=== PATIENT | male | born 1930 | race Caucasian/White ===

== ENCOUNTER 2018-10-30 13:13 | Inpatient (IN) | payer MEDICARE, BC ==
--- NOTE | 2018-10-30 13:50 | ED Physician Chart ---
ED Chief Complaint/HPI - Patient Information Date Seen:: 10/30/18 Time Seen:: 13:40 Chief Complaint:: agitation History of Present Illness:: Patient's been agitated and combative for the last 5 weeks. He has been hitting and kicking his care provider. He's also had insomnia. Patient's had multiple episodes of pneumonia last time about 3 weeks ago at [facility]. Last night during a paroxysm of coughing patient's pulse ox went down to 79%. Allergies:: Allergies Allergy/AdvReac Type Severity Reaction Status Date / Time lisinopril AdvReac COUGH Verified 10/30/18 13:32 Vitals:: Vital Signs - 8 hr 10/30/18 13:33 Temp 98.4 F HR 74 RR 18 BP 102/42 O2 Sat % 96 Historian:: Patient, Other (care providers) Review:: Nurse's Note Reviewed ED Review of Systems - Review of Systems General/Constitutional: No fever, No chills, No weight loss, No weakness, No diaphoresis, No edema, No loss of appetite Skin: No skin lesions, No rash, No bruising Head: No headache, No light-headedness Eyes: No loss of vision, No pain, No diplopia ENT: No earache, No nasal drainage, No sore throat, No tinnitus Neck: No neck pain, No swelling, No thyromegaly, No stiffness, No mass noted Cardio Vascular: No chest pain, No palpitations, No PND, No orthopnea, No edema Pulmonary: No SOB, No cough, No sputum, No wheezing GI: No nausea, No vomiting, No diarrhea, No pain, No melena, No hematochezia, No constipation, No hematemesis G/U: No dysuria, No frequency, No hematuria Musculoskeletal: No bone or joint pain, No back pain, No muscle pain Endocrine: No polyuria, No polydipsia Psychiatric: Other (dementia) Hematopoietic: No bruising, No lymphadenopathy Allergic/Immuno: No urticaria, No angioedema Neurological: No syncope, No focal symptoms, No weakness, No paresthesia, No headache, No seizure, No dizziness, No confusion, No vertigo ED Past Medical History - Past Medical History Past Medical History: HTN, Asthma/COPD, Dementia, Other (anemia) Family History: Other (not available) Social History: Non Smoker, No Alcohol Surgical History: other (penile implant and its removal) Psychiatricy History: Dementia Medication: Reviewed Family Medical History - Family Member Brother Ethnicity: Non- Living Status: Still Living Hx Family Cancer: Yes ED Physical Exam - Physical Examination General/Constitutional: Awake, Well-developed, well-nourished, Alert, No distress, GCS 15, Non-toxic appearing, Ambulatory Head: Atraumatic Eyes: Lids, conjuctiva normal, PERRL, EOMI Skin: Nl inspection, No rash, No skin lesions, No ecchymosis, Well hydrated, No lymphadenopathy ENMT: External ears, nose nl, Lips, teeth, gums nl Neck: No nuchal rigidity Respiratory: Nl effort/Exclusion, Clear to Auscultation, No Wheeze/Rhonchi/Rales Cardio Vascular: RRR, No murmur, gallop, rubs, NL S1 S2 GI: No tenderness/rebounding/guarding, No organomegaly Extremities: Normal digits & nails ED Labs/Radiology/EKG Results - Lab Results Results: Laboratory Results WBC 8.8 Th/cmm (4.8-10.8) 10/30/18 14:10 RBC 4.60 Mil/cmm (3.80-5.80) 10/30/18 14:10 Hgb 11.7 gm/dL (12-16) L 10/30/18 14:10 Hct 36.6 % (41.0-60) L 10/30/18 14:10 MCV 79.6 fl (80-99) L 10/30/18 14:10 MCH 25.5 pg (27.0-31.0) L 10/30/18 14:10 MCHC Differential 32.1 pg (28.0-36.0) 10/30/18 14:10 RDW 27.1 % (11.5-20.0) H 10/30/18 14:10 Plt Count 328 Th/cmm (150-400) 10/30/18 14:10 MPV 7.4 fl 10/30/18 14:10 Neutrophils % 80.6 % (40.0-80.0) H 10/30/18 14:10 Lymphocytes % 7.6 % (20.0-50.0) L 10/30/18 14:10 Monocytes % 9.8 % (2.0-10.0) 10/30/18 14:10 Eosinophils % 1.3 % (0.0-5.0) 10/30/18 14:10 Basophils % 0.7 % (0.0-2.0) 10/30/18 14:10 Neutrophils (Manual) Not Reportable 10/30/18 14:10 Sodium 134 mEq/L (136-145) L 10/30/18 14:10 Potassium 3.9 mEq/L (3.5-5.1) 10/30/18 14:10 Chloride 100 mEq/L (98-107) 10/30/18 14:10 Carbon Dioxide 25.5 mEq/L (21.0-31.0) 10/30/18 14:10 Anion Gap 12.4 (7.0-16.0) 10/30/18 14:10 BUN 21 mg/dL (7-25) 10/30/18 14:10 Creatinine 1.1 mg/dL (0.7-1.3) 10/30/18 14:10 Est GFR ( Amer) TNP 10/30/18 14:10 Est GFR (Non-Af Amer) TNP 10/30/18 14:10 BUN/Creatinine Ratio 19.1 10/30/18 14:10 Glucose 101 mg/dL (70-105) 10/30/18 14:10 Calcium 9.0 mg/dL (8.6-10.3) 10/30/18 14:10 Total Bilirubin 0.4 mg/dL (0.3-1.0) 10/30/18 14:10 AST 14 U/L (13-39) 10/30/18 14:10 ALT 10 U/L (7-52) 10/30/18 14:10 Alkaline Phosphatase 79 U/L (34-104) 10/30/18 14:10 Total Protein 7.5 gm/dL (6.0-8.3) 10/30/18 14:10 Albumin 3.1 gm/dL (4.2-5.5) L 10/30/18 14:10 Globulin 4.4 gm/dL 10/30/18 14:10 Albumin/Globulin Ratio 0.7 (1.0-1.8) L 10/30/18 14:10 Triglycerides 63 mg/dL (<150) 10/30/18 14:10 Cholesterol 129 mg/dL (<200) 10/30/18 14:10 LDL Cholesterol Direct 61 mg/dL (75-193) L 10/30/18 14:10 HDL Cholesterol 49 mg/dL (23-92) 10/30/18 14:10 Salicylates < 25.0 mg/L (30.0-100.0) L 10/30/18 14:10 Acetaminophen < 10.0 ug/mL (10.0-30.0) L 10/30/18 14:10 Valproic Acid 15.7 ug/mL (50.0-100.0) L 10/30/18 14:10 Ethyl Alcohol < 10 mg/dL (0-10) 10/30/18 14:10 - Radiology Results Results: Chest x-ray showed chronic interstitial lung changes; underlying acute interstitial infiltrate cannot be completely excluded. - EKG Interpretations Rate & Rhythm: EKG showed normal sinus rhythm with a rate of 70 [place]: borderline right axis deviation Comments:: Inverted T waves in leads V1 and V2 ED Assessment - Assessment General Assessment: Patient admitted to [facility] because of his comorbidities. Chest x- ray showed possible acute interstitial infiltrate. Clinically probably patient does not have acute pneumonia but has the residual of his pneumonia 3 weeks ago. I spoke to Dr. Moi Jones and patient be admitted to telemetry with a consult to Dr. Schulz. ED Septic Shock - . Is Septic Shock (SBP<90, OR Lactate>4 mmol\L) present?: No - <6hrs of presentation: Vital Signs: Vital Signs - 8 hr 10/30/18 13:33 Temp 98.4 F HR 74 RR 18 BP 102/42 O2 Sat % 96 ED Reassessment (Disposition) - Reassessment Reassessment:: At about 1500 patient getting agitated and will be given Ativan 2 mg intramuscularly. Reassessment Condition:: Unchanged - Diagnosis Diagnosis:: Dementia with agitation; possible pneumonia; recent episode of hypoxemia; history of COPD - Patient Disposition Admitted to:: Telemetry Spoke to:: Moi Jones Condition at Disposition:: Stable, Unchanged
--- NOTE | 2018-10-30 14:05 | Diagnostic Imaging Report ---
CHEST X-RAY: AP view INDICATION: Pneumonia COMPARISON: None FINDINGS: Chronic interstitial lung changes are seen with linear densities throughout the lungs and biapical pleural thickening. Areas of scarring of the right mid to right upper lung zone is noted. Heart size normal. No focal consolidation or effusions. Degenerative changes of the spine are noted. IMPRESSION: Chronic interstitial lung changes with likely areas of scarring. Underlying acute interstitial infiltrate cannot be completely excluded. Clinical correlation is needed. There is probable COPD. Biapical pleural thickening which may be due to infectious or inflammatory process.
[2018-10-30 14:32] LABS: % BASOPHILS 0.7 % (0.0-2.0); % EOSINOPHILS 1.3 % (0.0-5.0); % LYMPHOCYTES 7.6 % (20.0-50.0); % MONOCYTES 9.8 % (2.0-10.0); % NEUTROPHILS 80.6 % (40.0-80.0); BASOPHILE ABSOLUTE 0.1 Th/cumm (0-0.2); EOSINOPHILE ABSOLUTE 0.1 Th/cmm (0.1-0.4); HEMATOCRIT 36.6 % (41.0-60); HEMOGLOBIN 11.7 gm/dL (12-16); LYMPHOCYTE ABSOLUTE 0.7 Th/cmm (1.5-3.0); MEAN CELL VOLUME 79.6 fl (80-99); MEAN CORPUSCULAR HEMOGLOBIN 25.5 pg (27.0-31.0); MEAN CORPUSCULAR HGB CONC 32.1 pg (28.0-36.0); MONOCYTE ABSOLUTE 0.9 Th/cmm (0.3-1.0); PLATELET COUNT 328 Th/cmm (150-400); RED CELL DISTRIBUTION WIDTH 27.1 % (11.5-20.0); WHITE BLOOD COUNT 8.8 Th/cmm (4.8-10.8)
[2018-10-30 14:40] LABS: ALB/GLOB RATIO 0.7 (1.0-1.8); ALBUMIN 3.1 gm/dL (4.2-5.5); ALKALINE PHOSPHATASE 79 U/L (34-104); ANION GAP 12.4 (7.0-16.0); BILIRUBIN,TOTAL 0.4 mg/dL (0.3-1.0); BUN - UREA NITROGEN 21 mg/dL (7-25); CARBON DIOXIDE 25.5 mEq/L (21.0-31.0); CHLORIDE 100 mEq/L (98-107); CHOLESTEROL 129 mg/dL (<200); CREATININE - SERUM 1.1 mg/dL (0.7-1.3); GLUCOSE 101 mg/dL (70-105); HDL -HIGH DENSITY LIPOPROTEIN 49 mg/dL (23-92); POTASSIUM SERUM 3.9 mEq/L (3.5-5.1); SGOT 14 U/L (13-39); SGPT/ALT 10 U/L (7-52); SODIUM SERUM 134 mEq/L (136-145); TOTAL PROTEIN,SERUM 7.5 gm/dL (6.0-8.3); TRIGLYCERIDES 63 mg/dL (<150)
[2018-10-30 14:52] LABS: ACETAMINOPHEN < 10.0 ug/mL (10.0-30.0)
[2018-10-30] MEDS ORDERED: Maalox 30 mL Cup PO PRN (17:43)
[2018-10-30] MEDS ORDERED: Magnesium Hydroxide (MOM) 30 mL UDC PO PRN (17:43)
[2018-10-30 18:06] VITALS: BP 127/63
[2018-10-30] MEDS ORDERED: Atorvastatin Calcium 10 MG TAB PO SCH ×2 (21:00)
--- NOTE | 2018-10-31 06:25 | History and Physical ---
History of Present Illness - HPI Chief Complaint: Psychosis HPI: 88 y/o male who presents to [facility] with history of increased agitation and combativeness noted by caregiver for the past 5 weeks. Patient has h/o HTN, Asthma/COPD, Dementia, Hyperlipidemia, GERD, BPH and Insomnia. Patient was noted to have persistent cough with pulse ox dropping to 79% by patient caregiver. Patient was subsequently brought to the hospital for further evaluation and treatment. While in the ER patient was noted had routine labwork done in the ER wbc 8.8 H/H 11.7/36.6 plat 328K Na 134 K 3.9 Bun/Cr 21/1.1 glu 101 Patient had chest xray done in the ER which revealed chronic COPD. Patient was subsequently admitted to [facility] for further evaluation and treatment. Vital Signs: Last Vital Signs Temp 97.6 F 10/30/18 20:38 Pulse 90 10/30/18 20:38 Resp 18 10/30/18 20:38 BP 110/62 10/30/18 20:38 Pulse Ox 96 10/30/18 20:38 Past Medical History Cardiovascular: Report: HTN, Hyperlipidemia Pulmonary: Report: COPD MUSEUM DOCENT: Report: Dementia GI: Report: GERD Psych: Report: Psychosis Musculoskeletal: Report: No Pertinent Hx Rheumatologic: Report: No pertinent Hx Infectious Disease: Report: No Pertinent Hx Renal/: Report: No Pertinent Hx Endocrine: Report: No Pertinent Hx Dermatology: Report: No Pertinent Hx - Past Surgical History Past Surgical History: No pertinent Hx Family Medical History - Family Member Brother History Unknown: Yes Ethnicity: Non- Living Status: Still Living Hx Family Cancer: Yes Social History Smoke: No Alcohol: None Drugs: None Lives: With Family - Medications Home Medications: Home Medication Medication Instructions Recorded Type Atorvastatin Calcium [Lipitor] 40 mg PO DAILY 10/30/[address] [Depakote DR] 250 mg PO DAILY 10/30/18 History Donepezil HCl [Aricept] 10 mg PO DAILY 10/30/18 History Losartan Potassium [Cozaar] 25 mg PO DAILY 10/30/18 History Memantine HCl 10 mg PO BID 10/30/18 History Omeprazole 20 mg PO BID 10/30/18 History Sertraline [Zoloft] 25 mg PO DAILY 10/30/18 History Tamsulosin HCl [Flomax] 0.4 mg PO HS 10/30/18 History Trazodone HCl 75 mg PO HS 10/30/18 History - Allergies Allergies/Adverse Reactions: Allergies Allergy/AdvReac Type Severity Reaction Status Date / Time lisinopril AdvReac COUGH Verified 10/30/18 13:32 Review of Systems - Review of Systems Constitutional: Report: No Significant Eyes: Report: No Significant ENT: Report: No Significant Respiratory: Report: No Significant Cardiovascular: Report: No Significant Gastrointestinal: Report: No Significant Genitourinary: Report: No Significant Musculoskeletal: Report: No Significant Skin: Report: No Significant Neurological: Report: No Significant Physical Exam - Physical Exam HEENT: Report: Ears Nose Throat within normal limits, Pharnyx within normal limits Neck: Report: Within normal limits Cardiovascular Systems: Report: +s1/s2 noted, Regular, Rate and Rhythm Respiratory: Report: Breath Sounds are within normal limits Abdomen: Report: Non-tender to palpation Back: Report: Inspection of back is within normal limits. Extremities: Report: Non-tender to palpation. Skin: Report: Color of skin is within normal limits Neuro/Psych: Report: Mood affect is within normal limits - Lab Results All Lab Results last 24 hours: Laboratory Results - last 24 hr 10/30/18 10/30/18 10/30/18 14:10 14:10 14:10 WBC 8.8 RBC 4.60 Hgb 11.7 L Hct 36.6 L MCV 79.6 L MCH 25.5 L MCHC Differential 32.1 RDW 27.1 H Plt Count 328 MPV 7.4 Neutrophils % 80.6 H Lymphocytes % 7.6 L Monocytes % 9.8 Eosinophils % 1.3 Basophils % 0.7 Neutrophils (Manual) Not Reportable Sodium 134 L Potassium 3.9 Chloride 100 Carbon Dioxide 25.5 Anion Gap 12.4 BUN 21 Creatinine 1.1 Est GFR ( Amer) TNP Est GFR (Non-Af Amer) TNP BUN/Creatinine Ratio 19.1 Glucose 101 Calcium 9.0 Total Bilirubin 0.4 AST 14 ALT 10 Alkaline Phosphatase 79 Total Protein 7.5 Albumin 3.1 L Globulin 4.4 Albumin/Globulin Ratio 0.7 L Triglycerides 63 Cholesterol 129 LDL Cholesterol Direct 61 L HDL Cholesterol 49 TSH 7.46 H Salicylates < 25.0 L Acetaminophen < 10.0 L Valproic Acid Ethyl Alcohol < 10 10/30/18 14:10 WBC RBC Hgb Hct MCV MCH MCHC Differential RDW Plt Count MPV Neutrophils % Lymphocytes % Monocytes % Eosinophils % Basophils % Neutrophils (Manual) Sodium Potassium Chloride Carbon Dioxide Anion Gap BUN Creatinine Est GFR ( Amer) Est GFR (Non-Af Amer) BUN/Creatinine Ratio Glucose Calcium Total Bilirubin AST ALT Alkaline Phosphatase Total Protein Albumin Globulin Albumin/Globulin Ratio Triglycerides Cholesterol LDL Cholesterol Direct HDL Cholesterol TSH Salicylates Acetaminophen Valproic Acid 15.7 L Ethyl Alcohol - Assessment Assessment: Psychosis HTN Asthma/COPD Dementia Hyperlipidemia GERD BPH Insomnia hypothyroidism - [facility] add levothyroxine 50mcg
[2018-10-31] MEDS ORDERED: Albuterol Nebulizer 2.5mg/3mL HHN PRN (06:28)
[2018-10-31] MEDS: Levothyroxine 0.05 Mg Tab PO SCH (06:45)
[2018-10-31] MEDS: Pantoprazole 40 mg EC Tab PO SCH (06:45)
[2018-10-31] MEDS ORDERED: Non-Formulary Item 1 EA (Omeprazole [Omeprazole] 20 MG) PO SCH (09:00)
[2018-10-31] MEDS ORDERED: Non-Formulary Item 1 EA (Atorvastatin Calcium [Lipitor] 40 MG) PO SCH (09:00)
[2018-10-31] MEDS: Multivitamin Tab PO SCH (09:50)
--- NOTE | 2018-10-31 19:36 | Psychiatric Evaluation ---
DATE OF SERVICE: 10/30/2018 CHIEF COMPLAINT: Extreme agitation and aggressive behavior. HISTORY OF PRESENT ILLNESS: The patient is admitted to the [facility], also to the Emergency Room because of increased agitation and combative behavior for the last 5 weeks. The patient has been hitting and kicking his care provider. He also has been having extreme irritable and extreme agitation. The patient also has not been able to follow any directions. The patient also has a history of pneumonia and he was in treatment in [facility] 3 weeks ago. He is still struggling with pneumonia. The patient also is still easily agitated and easily irritable and aggressive and unable to follow any directions. The patient also is still coughing. PAST PSYCHIATRIC HISTORY: The patient has history of dementia. Otherwise, no known psychiatric problems. PAST MEDICAL HISTORY: The patient has hypertension as well as bronchial asthma. The patient also has history of anemia and COPD. The patient also was in treatment in [facility] 5 weeks ago for pneumonia. ALLERGIES: No known allergies. MENTAL STATUS EXAMINATION: The patient appears older than his stated age. Anxious. Irritable mood. Agitated. Difficulty following directions. Thought processes are circumstantial with poverty of speech. The patient did not answer question regarding hallucinations or delusions or regarding suicide or homicide because of his agitation. The patient is alert, but seems to be disoriented to time, place, person, and situation. Impaired recent and immediate memories. Intact remote memory. ASSESSMENT: PRIMARY DIAGNOSIS: Unspecified psychosis. SECONDARY DIAGNOSIS: Dementia, moderate to severe, with psychotic features and behavioral disturbances. MEDICAL DIAGNOSES: 1. Hypertension. 2. Chronic obstructive pulmonary disease. 3. Bronchial asthma. 4. History of pneumonia. 5. Anemia. TREATMENT PLAN: We will monitor the patient's behavior and condition closely. We will start individual as well as milieu psychotherapy. We will also continue the patient on Depakote as well as Aricept. Also, we will consider changing Zoloft, but for the time being we will continue Zoloft and continue trazodone until further evaluation. ESTIMATED LENGTH OF STAY: 5-7 days. THE PATIENT'S STRENGTHS AND WEAKNESSES: The patient's strength is not clear at this time. Weakness is significant poor impulse control and irritability and agitation. AFTER DISCHARGE PLAN: Outpatient treatment and followup will continue as an outpatient and the patient might need placement in the detention. CRITERIA FOR DISCHARGE: The patient will have better impulse control and not as aggressive and will stabilize psychotropic medications. JOB# [id number]
--- NOTE | 2018-11-01 06:03 | General Progress Note ---
Subjective - Review of Systems Service Date: 11/01/18 Subjective: Awake, Alert, Afebrile VS T97.9 P74 BP 143/69 R18 Objective - Results Result Diagrams: 10/30/18 14:10 10/30/18 14:10 Recent Labs: Laboratory Last Values WBC 8.8 Th/cmm (4.8-10.8) 10/30/18 14:10 RBC 4.60 Mil/cmm (3.80-5.80) 10/30/18 14:10 Hgb 11.7 gm/dL (12-16) L 10/30/18 14:10 Hct 36.6 % (41.0-60) L 10/30/18 14:10 MCV 79.6 fl (80-99) L 10/30/18 14:10 MCH 25.5 pg (27.0-31.0) L 10/30/18 14:10 MCHC Differential 32.1 pg (28.0-36.0) 10/30/18 14:10 RDW 27.1 % (11.5-20.0) H 10/30/18 14:10 Plt Count 328 Th/cmm (150-400) 10/30/18 14:10 MPV 7.4 fl 10/30/18 14:10 Neutrophils % 80.6 % (40.0-80.0) H 10/30/18 14:10 Lymphocytes % 7.6 % (20.0-50.0) L 10/30/18 14:10 Monocytes % 9.8 % (2.0-10.0) 10/30/18 14:10 Eosinophils % 1.3 % (0.0-5.0) 10/30/18 14:10 Basophils % 0.7 % (0.0-2.0) 10/30/18 14:10 Neutrophils (Manual) Not Reportable 10/30/18 14:10 Sodium 134 mEq/L (136-145) L 10/30/18 14:10 Potassium 3.9 mEq/L (3.5-5.1) 10/30/18 14:10 Chloride 100 mEq/L (98-107) 10/30/18 14:10 Carbon Dioxide 25.5 mEq/L (21.0-31.0) 10/30/18 14:10 Anion Gap 12.4 (7.0-16.0) 10/30/18 14:10 BUN 21 mg/dL (7-25) 10/30/18 14:10 Creatinine 1.1 mg/dL (0.7-1.3) 10/30/18 14:10 Est GFR ( Amer) TNP 10/30/18 14:10 Est GFR (Non-Af Amer) TNP 10/30/18 14:10 BUN/Creatinine Ratio 19.1 10/30/18 14:10 Glucose 101 mg/dL (70-105) 10/30/18 14:10 Calcium 9.0 mg/dL (8.6-10.3) 10/30/18 14:10 Total Bilirubin 0.4 mg/dL (0.3-1.0) 10/30/18 14:10 AST 14 U/L (13-39) 10/30/18 14:10 ALT 10 U/L (7-52) 10/30/18 14:10 Alkaline Phosphatase 79 U/L (34-104) 10/30/18 14:10 Total Protein 7.5 gm/dL (6.0-8.3) 10/30/18 14:10 Albumin 3.1 gm/dL (4.2-5.5) L 10/30/18 14:10 Globulin 4.4 gm/dL 10/30/18 14:10 Albumin/Globulin Ratio 0.7 (1.0-1.8) L 10/30/18 14:10 Triglycerides 63 mg/dL (<150) 10/30/18 14:10 Cholesterol 129 mg/dL (<200) 10/30/18 14:10 LDL Cholesterol Direct 61 mg/dL (75-193) L 10/30/18 14:10 HDL Cholesterol 49 mg/dL (23-92) 10/30/18 14:10 TSH 7.46 uIU/ml (0.34-5.60) H 10/30/18 14:10 Salicylates < 25.0 mg/L (30.0-100.0) L 10/30/18 14:10 Acetaminophen < 10.0 ug/mL (10.0-30.0) L 10/30/18 14:10 Valproic Acid 15.7 ug/mL (50.0-100.0) L 10/30/18 14:10 Ethyl Alcohol < 10 mg/dL (0-10) 10/30/18 14:10 RPR NONREACTIVE (NONREACTIVE) 10/30/18 14:10 - Physical Exam Vitals and I&O: Vital Signs Temp 97.9 F 10/31/18 20:00 Pulse 74 10/31/18 20:00 Resp 18 10/31/18 20:00 BP 143/69 10/31/18 20:00 Pulse Ox 95 10/31/18 20:00 Intake & Output 10/31/18 10/31/18 11/01/18 06:59 18:59 06:59 Intake Total 240 460 Output Total 1 Balance 239 460 Intake: Oral 240 460 Output: Urine/Stool Mix 1 Other: # Voids 2 3 # Bowel Movements 0 0 Active Medications: Current Medications Acetaminophen (Tylenol) 650 mg PO Q4HR PRN PRN Reason: Mild Pain / Temp above 100 Stop: 12/29/18 17:42 Al Hydrox/Mg Hydrox/Simethicone (Maalox) 30 ml PO Q4HR PRN PRN Reason: GI DISTRESS Stop: 12/29/18 17:42 Albuterol Sulfate (Albuterol 2.5mg/3ml Neb Ud) 2.5 mg HHN Q4HRT PRN PRN Reason: Shortness of Breath Stop: 12/30/18 06:27 Atorvastatin Calcium (Lipitor) 40 mg PO HS [facility]; Protocol Stop: 12/29/18 20:59 Last Admin: 10/31/18 20:53 Dose: 40 mg Divalproex Sodium (Depakote Dr) 250 mg PO DAILY [facility]; Protocol Stop: 12/30/18 08:59 Last Admin: 10/31/18 09:50 Dose: 250 mg Donepezil HCl (Aricept) 10 mg PO DAILY [facility] Stop: 12/30/18 08:59 Last Admin: 10/31/18 09:50 Dose: 10 mg Levothyroxine Sodium (Synthroid) 0.05 mg PO QDAC [facility] Stop: 12/30/18 07:29 Last Admin: 10/31/18 06:45 Dose: 0.05 mg Losartan Potassium (Cozaar) 25 mg PO DAILY [facility] Stop: 12/30/18 08:59 Last Admin: 10/31/18 09:50 Dose: 25 mg Magnesium Hydroxide (Milk Of Magnesia) 30 ml PO HS PRN PRN Reason: Constipation Memantine (Namenda) 10 mg PO BID [facility] Stop: 12/30/18 08:59 Last Admin: 10/31/18 17:35 Dose: 10 mg Multivitamins/Vitamin C (Theragran) 1 tab PO DAILY [facility] Stop: 12/30/18 08:59 Last Admin: 10/31/18 09:50 Dose: 1 tab Pantoprazole Sodium (Protonix) 40 mg PO QDAC [facility] Stop: 12/30/18 07:29 Last Admin: 10/31/18 06:45 Dose: 40 mg Sertraline HCl (Zoloft) 25 mg PO DAILY [facility]; Protocol Stop: 12/30/18 08:59 Last Admin: 10/31/18 09:49 Dose: 25 mg Tamsulosin HCl (Flomax) 0.4 mg PO HS [facility] Stop: 12/29/18 20:59 Last Admin: 10/31/18 20:53 Dose: 0.4 mg Trazodone HCl (Desyrel) 75 mg PO HS [facility]; Protocol Stop: 12/29/18 20:59 Last Admin: 10/31/18 20:53 Dose: 75 mg Zolpidem Tartrate (Ambien) 5 mg PO HS PRN PRN Reason: Insomnia Stop: 12/29/18 17:42 General: Alert, No acute distress HEENT: Atraumatic, PERRLA, EOMI Neck: Supple Cardiovascular: Regular rate, Normal S1, Normal S2 Lungs: Clear to auscultation Abdomen: Bowel sounds, Soft Extremities: no Clubbing, no Cyanosis, no Edema Neurological: Normal gait Assessment/Plan - Assessment Assessment: Psychosis HTN Asthma/COPD Dementia Hyperlipidemia GERD BPH Insomnia hypothyroidism - Plan Plan: admit to [facility] add Albuterol HHN add levothyroxine 50mcg
--- NOTE | 2018-11-01 06:33 | Progress Notes ---
DATE: 10/31/2018 SUBJECTIVE: Chart was reviewed and the patient interviewed. Also discussed the patient's condition with the staff and reviewed records and labs. The patient is still agitated and restless. The patient also still needs close monitoring and has difficulty following directions. He also still seems to be suspicious and paranoid and seems to be slightly confused. The patient also has history of combative behavior. Otherwise, the patient is compliant with taking his medications with no side effects. ASSESSMENT: The patient is still agitated and aggressive. TREATMENT PLAN: Continue current medications including Namenda 10 mg twice a day and Aricept 10 mg every day as well as trazodone 75 mg at bedtime and Depakote and Zoloft. Also, continue working on his poor impulse control and on his agitation and irritability. Also, working on his interpersonal relationships. JOB# [id number]
[2018-11-01] MEDS: Levothyroxine 0.05 Mg Tab PO SCH (06:39)
[2018-11-01] MEDS: Pantoprazole 40 mg EC Tab PO SCH (06:39)
[2018-11-01] MEDS: Multivitamin Tab PO SCH (09:50)
[2018-11-01] MEDS ORDERED: Haloperidol Lactate 5 mg/mL 1mL Vial IM STA (12:28)
[2018-11-01] MEDS: Albuterol/Ipratropium Neb 3 ML AERS HHN SCH ×2 (18:54→22:26)
--- NOTE | 2018-11-02 00:01 | Progress Notes ---
DATE: 11/01/2018 SUBJECTIVE: Case was discussed with staff of the patient, reviewed records. This is an 88-year-old male who was admitted on 10/30/2018, because of his agitation, combative behavior for the past few weeks has been hitting and kicking his care provider, also has been extremely irritable, extremely agitated, unable to follow direction with a history of pneumonia. He was in treatment at [facility] [place] 3 weeks prior. He is still struggling with pneumonia. The patient is easily agitated, easily irritable and aggressive with history of dementia. The patient continues to be easily agitated, loud on the unit, and demanding. He has tried to grab at me when I was trying to talk to him. Continues to unable to carry a reasonable conversation, suspicious, paranoid, confused, unable to make safe plan for self-care. He is on Namenda 10 mg twice a day, Aricept 10 mg at bedtime and Depakote 250 mg twice a day, and Zoloft 25 mg daily with no side effects, no sedation, no nausea. I will continue the patient in group therapy, milieu therapy, and adjust the medication as needed. JOB# [id number]
[2018-11-02] MEDS: Albuterol/Ipratropium Neb 3 ML AERS HHN SCH ×6 (02:32→22:31)
--- NOTE | 2018-11-02 06:17 | General Progress Note ---
Subjective - Review of Systems Service Date: 11/02/18 Subjective: Awake, Alert, Afebrile VS T97.7 P86 BP 137/74 R18 Objective - Results Result Diagrams: 10/30/18 14:10 10/30/18 14:10 Recent Labs: Laboratory Last Values WBC 8.8 Th/cmm (4.8-10.8) 10/30/18 14:10 RBC 4.60 Mil/cmm (3.80-5.80) 10/30/18 14:10 Hgb 11.7 gm/dL (12-16) L 10/30/18 14:10 Hct 36.6 % (41.0-60) L 10/30/18 14:10 MCV 79.6 fl (80-99) L 10/30/18 14:10 MCH 25.5 pg (27.0-31.0) L 10/30/18 14:10 MCHC Differential 32.1 pg (28.0-36.0) 10/30/18 14:10 RDW 27.1 % (11.5-20.0) H 10/30/18 14:10 Plt Count 328 Th/cmm (150-400) 10/30/18 14:10 MPV 7.4 fl 10/30/18 14:10 Neutrophils % 80.6 % (40.0-80.0) H 10/30/18 14:10 Lymphocytes % 7.6 % (20.0-50.0) L 10/30/18 14:10 Monocytes % 9.8 % (2.0-10.0) 10/30/18 14:10 Eosinophils % 1.3 % (0.0-5.0) 10/30/18 14:10 Basophils % 0.7 % (0.0-2.0) 10/30/18 14:10 Neutrophils (Manual) Not Reportable 10/30/18 14:10 Sodium 134 mEq/L (136-145) L 10/30/18 14:10 Potassium 3.9 mEq/L (3.5-5.1) 10/30/18 14:10 Chloride 100 mEq/L (98-107) 10/30/18 14:10 Carbon Dioxide 25.5 mEq/L (21.0-31.0) 10/30/18 14:10 Anion Gap 12.4 (7.0-16.0) 10/30/18 14:10 BUN 21 mg/dL (7-25) 10/30/18 14:10 Creatinine 1.1 mg/dL (0.7-1.3) 10/30/18 14:10 Est GFR ( Amer) TNP 10/30/18 14:10 Est GFR (Non-Af Amer) TNP 10/30/18 14:10 BUN/Creatinine Ratio 19.1 10/30/18 14:10 Glucose 101 mg/dL (70-105) 10/30/18 14:10 Calcium 9.0 mg/dL (8.6-10.3) 10/30/18 14:10 Total Bilirubin 0.4 mg/dL (0.3-1.0) 10/30/18 14:10 AST 14 U/L (13-39) 10/30/18 14:10 ALT 10 U/L (7-52) 10/30/18 14:10 Alkaline Phosphatase 79 U/L (34-104) 10/30/18 14:10 Total Protein 7.5 gm/dL (6.0-8.3) 10/30/18 14:10 Albumin 3.1 gm/dL (4.2-5.5) L 10/30/18 14:10 Globulin 4.4 gm/dL 10/30/18 14:10 Albumin/Globulin Ratio 0.7 (1.0-1.8) L 10/30/18 14:10 Triglycerides 63 mg/dL (<150) 10/30/18 14:10 Cholesterol 129 mg/dL (<200) 10/30/18 14:10 LDL Cholesterol Direct 61 mg/dL (75-193) L 10/30/18 14:10 HDL Cholesterol 49 mg/dL (23-92) 10/30/18 14:10 TSH 7.46 uIU/ml (0.34-5.60) H 10/30/18 14:10 Salicylates < 25.0 mg/L (30.0-100.0) L 10/30/18 14:10 Acetaminophen < 10.0 ug/mL (10.0-30.0) L 10/30/18 14:10 Valproic Acid 15.7 ug/mL (50.0-100.0) L 10/30/18 14:10 Ethyl Alcohol < 10 mg/dL (0-10) 10/30/18 14:10 RPR NONREACTIVE (NONREACTIVE) 10/30/18 14:10 - Physical Exam Vitals and I&O: Vital Signs Temp 97.7 F 11/01/18 20:00 Pulse 86 11/02/18 02:37 Resp 20 11/02/18 02:37 BP 137/74 11/01/18 20:00 Pulse Ox 95 11/02/18 02:37 Intake & Output 11/01/18 11/01/18 11/02/18 06:59 18:59 06:59 Intake Total 480 650 Balance 480 650 Intake: Oral 480 650 Other: # Voids 2 3 Active Medications: Current Medications Acetaminophen (Tylenol) 650 mg PO Q4HR PRN PRN Reason: Mild Pain / Temp above 100 Stop: 12/29/18 17:42 Al Hydrox/Mg Hydrox/Simethicone (Maalox) 30 ml PO Q4HR PRN PRN Reason: GI DISTRESS Stop: 12/29/18 17:42 Albuterol/Ipratropium (Duoneb Neb) 3 ml HHN Q4HRT [facility] Stop: 12/31/18 18:59 Last Admin: 11/02/18 02:32 Dose: 3 ml Atorvastatin Calcium (Lipitor) 40 mg PO HS [facility]; Protocol Stop: 12/29/18 20:59 Last Admin: 11/01/18 20:18 Dose: 40 mg Divalproex Sodium (Depakote Dr) 250 mg PO DAILY [facility]; Protocol Stop: 12/30/18 08:59 Last Admin: 11/01/18 09:50 Dose: 250 mg Donepezil HCl (Aricept) 10 mg PO DAILY [facility] Stop: 12/30/18 08:59 Last Admin: 11/01/18 09:50 Dose: 10 mg Levothyroxine Sodium (Synthroid) 0.05 mg PO QDAC [facility] Stop: 12/30/18 07:29 Last Admin: 11/01/18 06:39 Dose: 0.05 mg Lorazepam (Ativan) 0.5 mg PO Q4HR PRN; Protocol PRN Reason: anxiety Stop: 12/31/18 12:14 Last Admin: 11/01/18 20:19 Dose: 0.5 mg Losartan Potassium (Cozaar) 25 mg PO DAILY [facility] Stop: 12/30/18 08:59 Last Admin: 11/01/18 09:51 Dose: 25 mg Magnesium Hydroxide (Milk Of Magnesia) 30 ml PO HS PRN PRN Reason: Constipation Memantine (Namenda) 10 mg PO BID [facility] Stop: 12/30/18 08:59 Last Admin: 11/01/18 17:17 Dose: 10 mg Multivitamins/Vitamin C (Theragran) 1 tab PO DAILY [facility] Stop: 12/30/18 08:59 Last Admin: 11/01/18 09:50 Dose: 1 tab Pantoprazole Sodium (Protonix) 40 mg PO QDAC [facility] Stop: 12/30/18 07:29 Last Admin: 11/01/18 06:39 Dose: 40 mg Sertraline HCl (Zoloft) 25 mg PO DAILY [facility]; Protocol Stop: 12/30/18 08:59 Last Admin: 11/01/18 09:51 Dose: 25 mg Tamsulosin HCl (Flomax) 0.4 mg PO HS [facility] Stop: 12/29/18 20:59 Last Admin: 11/01/18 20:18 Dose: 0.4 mg Trazodone HCl (Desyrel) 75 mg PO HS [facility]; Protocol Stop: 12/29/18 20:59 Last Admin: 11/01/18 20:18 Dose: 75 mg Zolpidem Tartrate (Ambien) 5 mg PO HS PRN PRN Reason: Insomnia Stop: 12/29/18 17:42 Last Admin: 11/01/18 23:08 Dose: 5 mg General: Alert, No acute distress HEENT: Atraumatic, PERRLA, EOMI Neck: Supple Cardiovascular: Regular rate, Normal S1, Normal S2 Lungs: Clear to auscultation Abdomen: Bowel sounds, Soft Extremities: no Clubbing, no Cyanosis, no Edema Neurological: Normal gait Assessment/Plan - Assessment Assessment: Psychosis HTN Asthma/COPD Dementia Hyperlipidemia GERD BPH Insomnia hypothyroidism - Plan Plan: admit to [facility] add Albuterol HHN add levothyroxine 50mcg
[2018-11-02] MEDS: Levothyroxine 0.05 Mg Tab PO SCH (06:29)
[2018-11-02] MEDS: Pantoprazole 40 mg EC Tab PO SCH (06:29)
[2018-11-02] MEDS: Multivitamin Tab PO SCH (09:56)
[2018-11-03] MEDS: Albuterol/Ipratropium Neb 3 ML AERS HHN SCH ×6 (02:56→23:19)
--- NOTE | 2018-11-03 03:30 | Progress Notes ---
DATE: 11/02/2018 FOLLOWUP PROGRESS NOTE Covering for Dr. Schulz. Case was discussed with staff of the patient, reviewed records. The patient yesterday had to end up having to take Haldol 2 mg, Ativan 0.5 mg and Benadryl 25 mg and today he is calmer. He is not acting out and loud and banging on the table as he was yesterday. He was nonstop for almost 1-1/2 hour 2-3 hours yesterday, being very agitated today. He is calm, easier to redirect, unable, however, to carry on conversation or make safe plan for self-care, unpredictable, impulsive. No side effects with the medication today. No sedation, no nausea and no extrapyramidal symptoms. I will continue to work with the patient in group therapy, milieu therapy, adjust the medication as needed. JOB# [id number]
[2018-11-03] MEDS: Levothyroxine 0.05 Mg Tab PO SCH (06:47)
[2018-11-03] MEDS: Pantoprazole 40 mg EC Tab PO SCH (06:48)
--- NOTE | 2018-11-03 08:20 | General Progress Note ---
Subjective - Review of Systems Service Date: 11/03/18 Subjective: Awake, Alert, Afebrile VS T97.7 P69 BP 118/73 R19 Objective - Results Result Diagrams: 10/30/18 14:10 10/30/18 14:10 Recent Labs: Laboratory Last Values WBC 8.8 Th/cmm (4.8-10.8) 10/30/18 14:10 RBC 4.60 Mil/cmm (3.80-5.80) 10/30/18 14:10 Hgb 11.7 gm/dL (12-16) L 10/30/18 14:10 Hct 36.6 % (41.0-60) L 10/30/18 14:10 MCV 79.6 fl (80-99) L 10/30/18 14:10 MCH 25.5 pg (27.0-31.0) L 10/30/18 14:10 MCHC Differential 32.1 pg (28.0-36.0) 10/30/18 14:10 RDW 27.1 % (11.5-20.0) H 10/30/18 14:10 Plt Count 328 Th/cmm (150-400) 10/30/18 14:10 MPV 7.4 fl 10/30/18 14:10 Neutrophils % 80.6 % (40.0-80.0) H 10/30/18 14:10 Lymphocytes % 7.6 % (20.0-50.0) L 10/30/18 14:10 Monocytes % 9.8 % (2.0-10.0) 10/30/18 14:10 Eosinophils % 1.3 % (0.0-5.0) 10/30/18 14:10 Basophils % 0.7 % (0.0-2.0) 10/30/18 14:10 Neutrophils (Manual) Not Reportable 10/30/18 14:10 Sodium 134 mEq/L (136-145) L 10/30/18 14:10 Potassium 3.9 mEq/L (3.5-5.1) 10/30/18 14:10 Chloride 100 mEq/L (98-107) 10/30/18 14:10 Carbon Dioxide 25.5 mEq/L (21.0-31.0) 10/30/18 14:10 Anion Gap 12.4 (7.0-16.0) 10/30/18 14:10 BUN 21 mg/dL (7-25) 10/30/18 14:10 Creatinine 1.1 mg/dL (0.7-1.3) 10/30/18 14:10 Est GFR ( Amer) TNP 10/30/18 14:10 Est GFR (Non-Af Amer) TNP 10/30/18 14:10 BUN/Creatinine Ratio 19.1 10/30/18 14:10 Glucose 101 mg/dL (70-105) 10/30/18 14:10 Calcium 9.0 mg/dL (8.6-10.3) 10/30/18 14:10 Total Bilirubin 0.4 mg/dL (0.3-1.0) 10/30/18 14:10 AST 14 U/L (13-39) 10/30/18 14:10 ALT 10 U/L (7-52) 10/30/18 14:10 Alkaline Phosphatase 79 U/L (34-104) 10/30/18 14:10 Total Protein 7.5 gm/dL (6.0-8.3) 10/30/18 14:10 Albumin 3.1 gm/dL (4.2-5.5) L 10/30/18 14:10 Globulin 4.4 gm/dL 10/30/18 14:10 Albumin/Globulin Ratio 0.7 (1.0-1.8) L 10/30/18 14:10 Triglycerides 63 mg/dL (<150) 10/30/18 14:10 Cholesterol 129 mg/dL (<200) 10/30/18 14:10 LDL Cholesterol Direct 61 mg/dL (75-193) L 10/30/18 14:10 HDL Cholesterol 49 mg/dL (23-92) 10/30/18 14:10 TSH 7.46 uIU/ml (0.34-5.60) H 10/30/18 14:10 Salicylates < 25.0 mg/L (30.0-100.0) L 10/30/18 14:10 Acetaminophen < 10.0 ug/mL (10.0-30.0) L 10/30/18 14:10 Valproic Acid 15.7 ug/mL (50.0-100.0) L 10/30/18 14:10 Ethyl Alcohol < 10 mg/dL (0-10) 10/30/18 14:10 RPR NONREACTIVE (NONREACTIVE) 10/30/18 14:10 - Physical Exam Vitals and I&O: Vital Signs Temp 97.7 F 11/03/18 06:36 Pulse 84 11/03/18 07:18 Resp 19 11/03/18 07:18 BP 118/73 11/03/18 06:36 Pulse Ox 90 11/03/18 07:18 Intake & Output 11/02/18 11/03/18 11/03/18 18:59 06:59 18:59 Other: # Voids 2 3 # Bowel Movements 1 Active Medications: Current Medications Acetaminophen (Tylenol) 650 mg PO Q4HR PRN PRN Reason: Mild Pain / Temp above 100 Stop: 12/29/18 17:42 Al Hydrox/Mg Hydrox/Simethicone (Maalox) 30 ml PO Q4HR PRN PRN Reason: GI DISTRESS Stop: 12/29/18 17:42 Albuterol/Ipratropium (Duoneb Neb) 3 ml HHN Q4HRT [facility] Stop: 12/31/18 18:59 Last Admin: 11/03/18 07:18 Dose: 3 ml Atorvastatin Calcium (Lipitor) 40 mg PO HS [facility]; Protocol Stop: 12/29/18 20:59 Last Admin: 11/02/18 21:18 Dose: 40 mg Divalproex Sodium (Depakote Dr) 250 mg PO DAILY [facility]; Protocol Stop: 12/30/18 08:59 Last Admin: 11/02/18 09:56 Dose: 250 mg Donepezil HCl (Aricept) 10 mg PO DAILY [facility] Stop: 12/30/18 08:59 Last Admin: 11/02/18 09:56 Dose: 10 mg Levothyroxine Sodium (Synthroid) 0.05 mg PO QDAC [facility] Stop: 12/30/18 07:29 Last Admin: 11/03/18 06:47 Dose: 0.05 mg Lorazepam (Ativan) 0.5 mg PO Q4HR PRN; Protocol PRN Reason: anxiety Stop: 12/31/18 12:14 Last Admin: 11/01/18 20:19 Dose: 0.5 mg Losartan Potassium (Cozaar) 25 mg PO DAILY [facility] Stop: 12/30/18 08:59 Last Admin: 11/02/18 09:54 Dose: Not Given Magnesium Hydroxide (Milk Of Magnesia) 30 ml PO HS PRN PRN Reason: Constipation Memantine (Namenda) 10 mg PO BID [facility] Stop: 12/30/18 08:59 Last Admin: 11/02/18 17:18 Dose: 10 mg Multivitamins/Vitamin C (Theragran) 1 tab PO DAILY [facility] Stop: 12/30/18 08:59 Last Admin: 11/02/18 09:56 Dose: 1 tab Pantoprazole Sodium (Protonix) 40 mg PO QDAC [facility] Stop: 12/30/18 07:29 Last Admin: 11/03/18 06:48 Dose: 40 mg Sertraline HCl (Zoloft) 25 mg PO DAILY [facility]; Protocol Stop: 12/30/18 08:59 Last Admin: 11/02/18 09:57 Dose: 25 mg Tamsulosin HCl (Flomax) 0.4 mg PO HS [facility] Stop: 12/29/18 20:59 Last Admin: 11/02/18 21:18 Dose: 0.4 mg Trazodone HCl (Desyrel) 75 mg PO HS [facility]; Protocol Stop: 12/29/18 20:59 Last Admin: 11/02/18 21:17 Dose: 75 mg Zolpidem Tartrate (Ambien) 5 mg PO HS PRN PRN Reason: Insomnia Stop: 12/29/18 17:42 Last Admin: 11/01/18 23:08 Dose: 5 mg General: Alert, No acute distress HEENT: Atraumatic, PERRLA, EOMI Neck: Supple Cardiovascular: Regular rate, Normal S1, Normal S2 Lungs: Clear to auscultation Abdomen: Bowel sounds, Soft Extremities: no Clubbing, no Cyanosis, no Edema Neurological: Normal gait Assessment/Plan - Assessment Assessment: Psychosis HTN Asthma/COPD Dementia Hyperlipidemia GERD BPH Insomnia hypothyroidism - Plan Plan: admit to [facility] add Albuterol HHN add levothyroxine 50mcg
[2018-11-03] MEDS: Multivitamin Tab PO SCH (10:26)
--- NOTE | 2018-11-03 14:05 | Diagnostic Imaging Report ---
CHEST X-RAY: 2 views INDICATION: Congestion COMPARISON: Chest x-ray 10/30/2018 FINDINGS: Chronic changes are seen with superimposed congestion and interstitial infiltrates and areas of pleural thickening. Heart size normal. Degenerative changes of the spine are noted. IMPRESSION: Chronic lung changes with superimposed congestion and interstitial infiltrates.
[2018-11-03] MEDS ORDERED: Guaifenesin DM 10 ML UDC PO PRN (17:41)
[2018-11-04] MEDS: Albuterol/Ipratropium Neb 3 ML AERS HHN SCH ×6 (04:09→23:46)
[2018-11-04] MEDS: Levothyroxine 0.05 Mg Tab PO SCH (06:41)
[2018-11-04] MEDS: Pantoprazole 40 mg EC Tab PO SCH (06:41)
--- NOTE | 2018-11-04 07:41 | General Progress Note ---
Subjective - Review of Systems Service Date: 11/04/18 Subjective: Awake, Alert, Afebrile VS T97.2 P85 BP 137/80 R18 Objective - Results Result Diagrams: 10/30/18 14:10 10/30/18 14:10 Recent Labs: Laboratory Last Values WBC 8.8 Th/cmm (4.8-10.8) 10/30/18 14:10 RBC 4.60 Mil/cmm (3.80-5.80) 10/30/18 14:10 Hgb 11.7 gm/dL (12-16) L 10/30/18 14:10 Hct 36.6 % (41.0-60) L 10/30/18 14:10 MCV 79.6 fl (80-99) L 10/30/18 14:10 MCH 25.5 pg (27.0-31.0) L 10/30/18 14:10 MCHC Differential 32.1 pg (28.0-36.0) 10/30/18 14:10 RDW 27.1 % (11.5-20.0) H 10/30/18 14:10 Plt Count 328 Th/cmm (150-400) 10/30/18 14:10 MPV 7.4 fl 10/30/18 14:10 Neutrophils % 80.6 % (40.0-80.0) H 10/30/18 14:10 Lymphocytes % 7.6 % (20.0-50.0) L 10/30/18 14:10 Monocytes % 9.8 % (2.0-10.0) 10/30/18 14:10 Eosinophils % 1.3 % (0.0-5.0) 10/30/18 14:10 Basophils % 0.7 % (0.0-2.0) 10/30/18 14:10 Neutrophils (Manual) Not Reportable 10/30/18 14:10 Sodium 134 mEq/L (136-145) L 10/30/18 14:10 Potassium 3.9 mEq/L (3.5-5.1) 10/30/18 14:10 Chloride 100 mEq/L (98-107) 10/30/18 14:10 Carbon Dioxide 25.5 mEq/L (21.0-31.0) 10/30/18 14:10 Anion Gap 12.4 (7.0-16.0) 10/30/18 14:10 BUN 21 mg/dL (7-25) 10/30/18 14:10 Creatinine 1.1 mg/dL (0.7-1.3) 10/30/18 14:10 Est GFR ( Amer) TNP 10/30/18 14:10 Est GFR (Non-Af Amer) TNP 10/30/18 14:10 BUN/Creatinine Ratio 19.1 10/30/18 14:10 Glucose 101 mg/dL (70-105) 10/30/18 14:10 Calcium 9.0 mg/dL (8.6-10.3) 10/30/18 14:10 Total Bilirubin 0.4 mg/dL (0.3-1.0) 10/30/18 14:10 AST 14 U/L (13-39) 10/30/18 14:10 ALT 10 U/L (7-52) 10/30/18 14:10 Alkaline Phosphatase 79 U/L (34-104) 10/30/18 14:10 Total Protein 7.5 gm/dL (6.0-8.3) 10/30/18 14:10 Albumin 3.1 gm/dL (4.2-5.5) L 10/30/18 14:10 Globulin 4.4 gm/dL 10/30/18 14:10 Albumin/Globulin Ratio 0.7 (1.0-1.8) L 10/30/18 14:10 Triglycerides 63 mg/dL (<150) 10/30/18 14:10 Cholesterol 129 mg/dL (<200) 10/30/18 14:10 LDL Cholesterol Direct 61 mg/dL (75-193) L 10/30/18 14:10 HDL Cholesterol 49 mg/dL (23-92) 10/30/18 14:10 TSH 7.46 uIU/ml (0.34-5.60) H 10/30/18 14:10 Salicylates < 25.0 mg/L (30.0-100.0) L 10/30/18 14:10 Acetaminophen < 10.0 ug/mL (10.0-30.0) L 10/30/18 14:10 Valproic Acid 15.7 ug/mL (50.0-100.0) L 10/30/18 14:10 Ethyl Alcohol < 10 mg/dL (0-10) 10/30/18 14:10 RPR NONREACTIVE (NONREACTIVE) 10/30/18 14:10 - Physical Exam Vitals and I&O: Vital Signs Temp 97.2 F 11/04/18 06:00 Pulse 85 11/04/18 07:10 Resp 18 11/04/18 07:10 BP 137/80 11/04/18 06:00 Pulse Ox 90 11/04/18 07:10 Intake & Output 11/03/18 11/04/18 11/04/18 18:59 06:59 18:59 Intake Total 660 240 Balance 660 240 Intake: Oral 660 240 Other: # Voids 2 2 # Bowel Movements 1 Active Medications: Current Medications Acetaminophen (Tylenol) 650 mg PO Q4HR PRN PRN Reason: Mild Pain / Temp above 100 Stop: 12/29/18 17:42 Al Hydrox/Mg Hydrox/Simethicone (Maalox) 30 ml PO Q4HR PRN PRN Reason: GI DISTRESS Stop: 12/29/18 17:42 Albuterol/Ipratropium (Duoneb Neb) 3 ml HHN Q4HRT [facility] Stop: 12/31/18 18:59 Last Admin: 11/04/18 07:10 Dose: 3 ml Atorvastatin Calcium (Lipitor) 40 mg PO HS [facility]; Protocol Stop: 12/29/18 20:59 Last Admin: 11/03/18 20:50 Dose: 40 mg Divalproex Sodium (Depakote Dr) 250 mg PO DAILY [facility]; Protocol Stop: 12/30/18 08:59 Last Admin: 11/03/18 13:14 Dose: 250 mg Donepezil HCl (Aricept) 10 mg PO DAILY [facility] Stop: 12/30/18 08:59 Last Admin: 11/03/18 10:25 Dose: Not Given Guaifenesin/Dextromethorphan (Robitussin Dm) 10 ml PO Q8HR PRN PRN Reason: Cough Stop: 01/02/19 17:40 Levothyroxine Sodium (Synthroid) 0.05 mg PO QDAC [facility] Stop: 12/30/18 07:29 Last Admin: 11/04/18 06:41 Dose: 0.05 mg Lorazepam (Ativan) 0.5 mg PO Q4HR PRN; Protocol PRN Reason: anxiety Stop: 12/31/18 12:14 Last Admin: 11/01/18 20:19 Dose: 0.5 mg Losartan Potassium (Cozaar) 25 mg PO DAILY [facility] Stop: 12/30/18 08:59 Last Admin: 11/03/18 10:26 Dose: Not Given Magnesium Hydroxide (Milk Of Magnesia) 30 ml PO HS PRN PRN Reason: Constipation Memantine (Namenda) 10 mg PO BID [facility] Stop: 12/30/18 08:59 Last Admin: 11/03/18 16:44 Dose: 10 mg Multivitamins/Vitamin C (Theragran) 1 tab PO DAILY [facility] Stop: 12/30/18 08:59 Last Admin: 11/03/18 10:26 Dose: Not Given Pantoprazole Sodium (Protonix) 40 mg PO QDAC [facility] Stop: 12/30/18 07:29 Last Admin: 11/04/18 06:41 Dose: 40 mg Sertraline HCl (Zoloft) 25 mg PO DAILY [facility]; Protocol Stop: 12/30/18 08:59 Last Admin: 11/03/18 10:26 Dose: Not Given Tamsulosin HCl (Flomax) 0.4 mg PO HS [facility] Stop: 12/29/18 20:59 Last Admin: 11/03/18 20:49 Dose: 0.4 mg Trazodone HCl (Desyrel) 75 mg PO HS [facility]; Protocol Stop: 12/29/18 20:59 Last Admin: 11/03/18 20:49 Dose: 75 mg Zolpidem Tartrate (Ambien) 5 mg PO HS PRN PRN Reason: Insomnia Stop: 12/29/18 17:42 Last Admin: 11/01/18 23:08 Dose: 5 mg General: Alert, No acute distress HEENT: Atraumatic, PERRLA, EOMI Neck: Supple Cardiovascular: Regular rate, Normal S1, Normal S2 Lungs: Clear to auscultation Abdomen: Bowel sounds, Soft Extremities: no Clubbing, no Cyanosis, no Edema Neurological: Normal gait Assessment/Plan - Assessment Assessment: Psychosis HTN Asthma/COPD Dementia Hyperlipidemia GERD BPH Insomnia hypothyroidism - Plan Plan: admit to [facility] add Albuterol HHN add levothyroxine 50mcg Nutritional Asmnt/Malnutr-PDOC - Dietary Evaluation Malnutrition Findings (Please click <Entered> for more info): Nutritional Asmnt/Malnutrition Start: 11/03/18 14: 52 Text: Status: Complete Freq: Protocol: Document 11/03/18 14:52 [email or web address] (Rec: 11/03/18 15:11 [email or web address]) Nutritional Asmnt/Malnutrition Patient General Information Nutritional Screening Moderate Risk Diagnosis psychosis Pertinent Medical Hx/Surgical Hx HTN, asthma/COPD, dementia, HLD, GERD, BPH, insomnia Subjective Information Pt asleep at visit, unable to arouse with multiple verbal stimulation. RN reports unable to assess if tolerating meals or swallow difficulty as pt refusing meals, likely requires assistance to eat. Swallow eval today with current diet texture recommended by SILO MAN. No noted food allergies in chart. Wt obtained by bedscale 10/31, no new wt since. BMI 18.7, borderline underwt. No edema. Current Diet Order/ Nutrition Support pureed, honey-thick liquids Patient / S.O Not Indicated Pertinent Medications Lipitor, Theragran, Protonix, Flomax, PRN MOM Pertinent Labs (10/31) Na 134, Alb 3.1, LDL 61 Nutritional Hx/Data Height 1.83 m Height (Calculated Centimeters) 182.9 Current Weight (lbs) 62.596 kg Weight (Calculated Kilograms) 62.6 Weight (Calculated Grams) 82387.7 [place] Body Weight 178 lb % [place] Body Weight 77 Body Mass Index (BMI) 18.7 Weight Status Approriate GI Symptoms GI Symptoms None Last BM 6/3 Difficult in: Chewing Swallowing Skin Integrity/Comment: dryness per Naveen dugan 14 Current %PO Negligible < 25% Estimated Nutritional Goals BEE in Kcals: Using Current wt Calories/Kcals/Kg 25-30 kcal/kg Kcals Calculated 1378-4081 Protein: Using Current wt Protein g/k-1.2 Protein Calculated 63-76 Fluid: ml 1575-1890ml Nutritional Problem 1. Problem Problem Difficulty swallowing Etiology medical condition Signs/Symptoms: SILO MAN rec pureed/honey-thick liquids. 2. Problem Problem Inadequate po intake Etiology lack of appetite Signs/Symptoms: 0% po intake 6/, none noted 6 2, refused breakfast this am per RN Intervention/Recommendation Recommendations by RD Add supplement feedings Comments 1. Continue pureed/honey-thick liquids 2. Add Ensure Enlive 1 carton TID 3. Monitor PO intake, wt, labs and skin integrity Expected Outcomes/Goals Expected Outcomes/Goals 1. PO intake to meet at least 75% of nutritional needs. 2. Wt stability, maintain skin integrity, labs to approach WNL. Betty Garcia RD
[2018-11-04] MEDS: Multivitamin Tab PO SCH (09:39)
--- NOTE | 2018-11-04 18:40 | Progress Notes ---
DATE: 11/03/2018 SUBJECTIVE: The patient is still rambling. The patient is still suspicious and paranoid and guarded and not answering much of the questions. The patient also is refusing medications and still the patient was compliant, was taking his medications. Otherwise, the patient still needs redirections. ASSESSMENT: The patient is still paranoid and suspicious. TREATMENT PLAN: Continue monitoring his behavior and his condition closely. Also, continue working on his compliance with taking his medications and continue to follow up. JOB# [id number]
--- NOTE | 2018-11-05 02:15 | Progress Notes ---
DATE: SUBJECTIVE: Chart reviewed and the patient interviewed. Also discussed the patient's condition with the staff and reviewed records and labs. The patient seems to be slightly calmer than before. He has less irritability and is not screaming as much. The patient also is still impulsive and is still having unpredictable behavior, but slightly easier to redirect him. The patient also has been compliant with taking his medications at times, but others he refused to take medications. ASSESSMENT: The patient is still confused and needs redirections and also needs to work on compliance taking his medications. TREATMENT PLAN: Continue monitoring his behavior closely. Also, encouraged the patient to take his medications. Also, continue to work on his irritability and impulsivity and continue to follow up. [facility]# [id number]
[2018-11-05] MEDS: Albuterol/Ipratropium Neb 3 ML AERS HHN SCH ×6 (03:00→22:02)
[2018-11-05] MEDS: Levothyroxine 0.05 Mg Tab PO SCH (06:41)
[2018-11-05] MEDS: Pantoprazole 40 mg EC Tab PO SCH (06:41)
--- NOTE | 2018-11-05 08:50 | General Progress Note ---
Subjective - Review of Systems Service Date: 11/05/18 Subjective: Awake, Alert, Afebrile, coughing, VS T97.2 P85 BP 137/80 R18 Objective - Results Result Diagrams: 10/30/18 14:10 10/30/18 14:10 Recent Labs: Laboratory Last Values WBC 8.8 Th/cmm (4.8-10.8) 10/30/18 14:10 RBC 4.60 Mil/cmm (3.80-5.80) 10/30/18 14:10 Hgb 11.7 gm/dL (12-16) L 10/30/18 14:10 Hct 36.6 % (41.0-60) L 10/30/18 14:10 MCV 79.6 fl (80-99) L 10/30/18 14:10 MCH 25.5 pg (27.0-31.0) L 10/30/18 14:10 MCHC Differential 32.1 pg (28.0-36.0) 10/30/18 14:10 RDW 27.1 % (11.5-20.0) H 10/30/18 14:10 Plt Count 328 Th/cmm (150-400) 10/30/18 14:10 MPV 7.4 fl 10/30/18 14:10 Neutrophils % 80.6 % (40.0-80.0) H 10/30/18 14:10 Lymphocytes % 7.6 % (20.0-50.0) L 10/30/18 14:10 Monocytes % 9.8 % (2.0-10.0) 10/30/18 14:10 Eosinophils % 1.3 % (0.0-5.0) 10/30/18 14:10 Basophils % 0.7 % (0.0-2.0) 10/30/18 14:10 Neutrophils (Manual) Not Reportable 10/30/18 14:10 Sodium 134 mEq/L (136-145) L 10/30/18 14:10 Potassium 3.9 mEq/L (3.5-5.1) 10/30/18 14:10 Chloride 100 mEq/L (98-107) 10/30/18 14:10 Carbon Dioxide 25.5 mEq/L (21.0-31.0) 10/30/18 14:10 Anion Gap 12.4 (7.0-16.0) 10/30/18 14:10 BUN 21 mg/dL (7-25) 10/30/18 14:10 Creatinine 1.1 mg/dL (0.7-1.3) 10/30/18 14:10 Est GFR ( Amer) TNP 10/30/18 14:10 Est GFR (Non-Af Amer) TNP 10/30/18 14:10 BUN/Creatinine Ratio 19.1 10/30/18 14:10 Glucose 101 mg/dL (70-105) 10/30/18 14:10 Calcium 9.0 mg/dL (8.6-10.3) 10/30/18 14:10 Total Bilirubin 0.4 mg/dL (0.3-1.0) 10/30/18 14:10 AST 14 U/L (13-39) 10/30/18 14:10 ALT 10 U/L (7-52) 10/30/18 14:10 Alkaline Phosphatase 79 U/L (34-104) 10/30/18 14:10 Total Protein 7.5 gm/dL (6.0-8.3) 10/30/18 14:10 Albumin 3.1 gm/dL (4.2-5.5) L 10/30/18 14:10 Globulin 4.4 gm/dL 10/30/18 14:10 Albumin/Globulin Ratio 0.7 (1.0-1.8) L 10/30/18 14:10 Triglycerides 63 mg/dL (<150) 10/30/18 14:10 Cholesterol 129 mg/dL (<200) 10/30/18 14:10 LDL Cholesterol Direct 61 mg/dL (75-193) L 10/30/18 14:10 HDL Cholesterol 49 mg/dL (23-92) 10/30/18 14:10 TSH 7.46 uIU/ml (0.34-5.60) H 10/30/18 14:10 Salicylates < 25.0 mg/L (30.0-100.0) L 10/30/18 14:10 Acetaminophen < 10.0 ug/mL (10.0-30.0) L 10/30/18 14:10 Valproic Acid 15.7 ug/mL (50.0-100.0) L 10/30/18 14:10 Ethyl Alcohol < 10 mg/dL (0-10) 10/30/18 14:10 RPR NONREACTIVE (NONREACTIVE) 10/30/18 14:10 - Physical Exam Vitals and I&O: Vital Signs Temp 96.9 F 11/05/18 06:29 Pulse 85 11/05/18 07:11 Resp 18 11/05/18 07:11 BP 140/58 11/05/18 06:29 Pulse Ox 94 11/05/18 07:11 Intake & Output 11/04/18 11/05/18 11/05/18 18:59 06:59 18:59 Intake Total 950 120 Balance 950 120 Intake: Oral 950 120 Other: # Voids 3 3 # Bowel Movements 0 0 Active Medications: Current Medications Acetaminophen (Tylenol) 650 mg PO Q4HR PRN PRN Reason: Mild Pain / Temp above 100 Stop: 12/29/18 17:42 Al Hydrox/Mg Hydrox/Simethicone (Maalox) 30 ml PO Q4HR PRN PRN Reason: GI DISTRESS Stop: 12/29/18 17:42 Albuterol/Ipratropium (Duoneb Neb) 3 ml HHN Q4HRT [facility] Stop: 12/31/18 18:59 Last Admin: 11/05/18 07:11 Dose: 3 ml Atorvastatin Calcium (Lipitor) 40 mg PO HS [facility]; Protocol Stop: 12/29/18 20:59 Last Admin: 11/04/18 21:15 Dose: 40 mg Divalproex Sodium (Depakote Dr) 250 mg PO DAILY [facility]; Protocol Stop: 12/30/18 08:59 Last Admin: 11/04/18 09:39 Dose: 250 mg Donepezil HCl (Aricept) 10 mg PO DAILY [facility] Stop: 12/30/18 08:59 Last Admin: 11/04/18 09:40 Dose: 10 mg Guaifenesin/Dextromethorphan (Robitussin Dm) 10 ml PO Q8HR PRN PRN Reason: Cough Stop: 01/02/19 17:40 Levofloxacin (Levaquin) 500 mg PO DAILY [facility] Stop: 01/04/19 08:59 Levothyroxine Sodium (Synthroid) 0.05 mg PO QDAC [facility] Stop: 12/30/18 07:29 Last Admin: 11/05/18 06:41 Dose: 0.05 mg Lorazepam (Ativan) 0.5 mg PO Q4HR PRN; Protocol PRN Reason: anxiety Stop: 12/31/18 12:14 Last Admin: 11/04/18 16:06 Dose: 0.5 mg Losartan Potassium (Cozaar) 25 mg PO DAILY [facility] Stop: 12/30/18 08:59 Last Admin: 11/04/18 09:40 Dose: 25 mg Magnesium Hydroxide (Milk Of Magnesia) 30 ml PO HS PRN PRN Reason: Constipation Memantine (Namenda) 10 mg PO BID [facility] Stop: 12/30/18 08:59 Last Admin: 11/04/18 16:06 Dose: 10 mg Multivitamins/Vitamin C (Theragran) 1 tab PO DAILY [facility] Stop: 12/30/18 08:59 Last Admin: 11/04/18 09:39 Dose: 1 tab Pantoprazole Sodium (Protonix) 40 mg PO QDAC [facility] Stop: 12/30/18 07:29 Last Admin: 11/05/18 06:41 Dose: 40 mg Sertraline HCl (Zoloft) 25 mg PO DAILY [facility]; Protocol Stop: 12/30/18 08:59 Last Admin: 11/04/18 09:40 Dose: 25 mg Tamsulosin HCl (Flomax) 0.4 mg PO HS [facility] Stop: 12/29/18 20:59 Last Admin: 11/04/18 21:16 Dose: 0.4 mg Trazodone HCl (Desyrel) 75 mg PO HS [facility]; Protocol Stop: 12/29/18 20:59 Last Admin: 11/04/18 21:16 Dose: 75 mg Zolpidem Tartrate (Ambien) 5 mg PO HS PRN PRN Reason: Insomnia Stop: 12/29/18 17:42 Last Admin: 11/01/18 23:08 Dose: 5 mg General: Alert, No acute distress HEENT: Atraumatic, PERRLA, EOMI Neck: Supple Cardiovascular: Regular rate, Normal S1, Normal S2 Lungs: Clear to auscultation Abdomen: Bowel sounds, Soft Extremities: no Clubbing, no Cyanosis, no Edema Neurological: Normal gait Assessment/Plan - Assessment Assessment: Psychosis HTN Asthma/COPD chronic bronchitis Dementia Hyperlipidemia GERD BPH Insomnia hypothyroidism - Plan Plan: admit to geropsyche add Albuterol N add levothyroxine 50mcg Nutritional Asmnt/Malnutr-PDOC - Dietary Evaluation Malnutrition Findings (Please click <Entered> for more info): Nutritional Asmnt/Malnutrition Start: 11/03/18 14: 52 Text: Status: Complete Freq: Protocol: Document 11/03/18 14:52 [email or web address] (Rec: 11/03/18 15:11 [email or web address]) Nutritional Asmnt/Malnutrition Patient General Information Nutritional Screening Moderate Risk Diagnosis psychosis Pertinent Medical Hx/Surgical Hx HTN, asthma/COPD, dementia, HLD, GERD, BPH, insomnia Subjective Information Pt asleep at visit, unable to arouse with multiple verbal stimulation. RN reports unable to assess if tolerating meals or swallow difficulty as pt refusing meals, likely requires assistance to eat. Swallow eval today with current diet texture recommended by ORDAINED MINISTER. No noted food allergies in chart. Wt obtained by bedscale 10/31, no new wt since. BMI 18.7, borderline underwt. No edema. Current Diet Order/ Nutrition Support pureed, honey-thick liquids Patient / S.O Not Indicated Pertinent Medications Lipitor, Theragran, Protonix, Flomax, PRN MOM Pertinent Labs (10/31) Na 134, Alb 3.1, LDL 61 Nutritional Hx/Data Height 1.83 m Height (Calculated Centimeters) 182.9 Current Weight (lbs) 62.596 kg Weight (Calculated Kilograms) 62.6 Weight (Calculated Grams) 53629.7 [place] Body Weight 178 lb % [place] Body Weight 77 Body Mass Index (BMI) 18.7 Weight Status Approriate GI Symptoms GI Symptoms None Last BM 6 Difficult in: Chewing Swallowing Skin Integrity/Comment: dryness per Naveen dugan Current %PO Negligible < 25% Estimated Nutritional Goals BEE in Kcals: Using Current wt Calories/Kcals/Kg 25-30 kcal/kg Kcals Calculated 5365-1564 Protein: Using Current wt Protein g/k-1.2 Protein Calculated 63-76 Fluid: ml 1575-1890ml Nutritional Problem 1. Problem Problem Difficulty swallowing Etiology medical condition Signs/Symptoms: ORDAINED MINISTER rec pureed/honey-thick liquids. 2. Problem Problem Inadequate po intake Etiology lack of appetite Signs/Symptoms: 0% po intake 11/01, none noted 6 /2, refused breakfast this am per RN Intervention/Recommendation Recommendations by RD Add supplement feedings Comments 1. Continue pureed/honey-thick liquids 2. Add Ensure Enlive 1 carton TID 3. Monitor PO intake, wt, labs and skin integrity Expected Outcomes/Goals Expected Outcomes/Goals 1. PO intake to meet at least 75% of nutritional needs. 2. Wt stability, maintain skin integrity, labs to approach WNL. Betty Garcia RD
[2018-11-05] MEDS: Multivitamin Tab PO SCH (09:48)
--- NOTE | 2018-11-05 19:30 | Progress Notes ---
DATE: 11/05/2018 SUBJECTIVE: Chart was reviewed and the patient interviewed. Also discussed the patient's condition with the staff and reviewed the records and labs. The patient is still confused and he is still agitated. The patient also still needs close monitoring. The patient also is still forgetful and he has difficulty following any of staff directions. On the other hand, the patient seems to be less agitated. Thought processes are still rambling and disorganized. ASSESSMENT: The patient is still psychotic and is still confused, but decreased yelling and decreased agitation. TREATMENT PLAN: Continue to monitor his behavior and his condition. Also, continue to work on his poor impulse control and adjusting medications and followup. JOB# [id number]
[2018-11-06] MEDS: Albuterol/Ipratropium Neb 3 ML AERS HHN SCH ×6 (03:05→23:07)
[2018-11-06] MEDS: Levothyroxine 0.05 Mg Tab PO SCH (06:37)
[2018-11-06] MEDS: Pantoprazole 40 mg EC Tab PO SCH (06:37)
--- NOTE | 2018-11-06 07:47 | General Progress Note ---
Subjective - Review of Systems Service Date: 11/06/18 Subjective: Awake, Alert, Afebrile, coughing, VS T97.2 P74 BP 137/71 R 18 Objective - Results Result Diagrams: 10/30/18 14:10 10/30/18 14:10 Recent Labs: Laboratory Last Values WBC 8.8 Th/cmm (4.8-10.8) 10/30/18 14:10 RBC 4.60 Mil/cmm (3.80-5.80) 10/30/18 14:10 Hgb 11.7 gm/dL (12-16) L 10/30/18 14:10 Hct 36.6 % (41.0-60) L 10/30/18 14:10 MCV 79.6 fl (80-99) L 10/30/18 14:10 MCH 25.5 pg (27.0-31.0) L 10/30/18 14:10 MCHC Differential 32.1 pg (28.0-36.0) 10/30/18 14:10 RDW 27.1 % (11.5-20.0) H 10/30/18 14:10 Plt Count 328 Th/cmm (150-400) 10/30/18 14:10 MPV 7.4 fl 10/30/18 14:10 Neutrophils % 80.6 % (40.0-80.0) H 10/30/18 14:10 Lymphocytes % 7.6 % (20.0-50.0) L 10/30/18 14:10 Monocytes % 9.8 % (2.0-10.0) 10/30/18 14:10 Eosinophils % 1.3 % (0.0-5.0) 10/30/18 14:10 Basophils % 0.7 % (0.0-2.0) 10/30/18 14:10 Neutrophils (Manual) Not Reportable 10/30/18 14:10 Sodium 134 mEq/L (136-145) L 10/30/18 14:10 Potassium 3.9 mEq/L (3.5-5.1) 10/30/18 14:10 Chloride 100 mEq/L (98-107) 10/30/18 14:10 Carbon Dioxide 25.5 mEq/L (21.0-31.0) 10/30/18 14:10 Anion Gap 12.4 (7.0-16.0) 10/30/18 14:10 BUN 21 mg/dL (7-25) 10/30/18 14:10 Creatinine 1.1 mg/dL (0.7-1.3) 10/30/18 14:10 Est GFR ( Amer) TNP 10/30/18 14:10 Est GFR (Non-Af Amer) TNP 10/30/18 14:10 BUN/Creatinine Ratio 19.1 10/30/18 14:10 Glucose 101 mg/dL (70-105) 10/30/18 14:10 Calcium 9.0 mg/dL (8.6-10.3) 10/30/18 14:10 Total Bilirubin 0.4 mg/dL (0.3-1.0) 10/30/18 14:10 AST 14 U/L (13-39) 10/30/18 14:10 ALT 10 U/L (7-52) 10/30/18 14:10 Alkaline Phosphatase 79 U/L (34-104) 10/30/18 14:10 Total Protein 7.5 gm/dL (6.0-8.3) 10/30/18 14:10 Albumin 3.1 gm/dL (4.2-5.5) L 10/30/18 14:10 Globulin 4.4 gm/dL 10/30/18 14:10 Albumin/Globulin Ratio 0.7 (1.0-1.8) L 10/30/18 14:10 Triglycerides 63 mg/dL (<150) 10/30/18 14:10 Cholesterol 129 mg/dL (<200) 10/30/18 14:10 LDL Cholesterol Direct 61 mg/dL (75-193) L 10/30/18 14:10 HDL Cholesterol 49 mg/dL (23-92) 10/30/18 14:10 TSH 7.46 uIU/ml (0.34-5.60) H 10/30/18 14:10 Salicylates < 25.0 mg/L (30.0-100.0) L 10/30/18 14:10 Acetaminophen < 10.0 ug/mL (10.0-30.0) L 10/30/18 14:10 Valproic Acid 15.7 ug/mL (50.0-100.0) L 10/30/18 14:10 Ethyl Alcohol < 10 mg/dL (0-10) 10/30/18 14:10 RPR NONREACTIVE (NONREACTIVE) 10/30/18 14:10 - Physical Exam Vitals and I&O: Vital Signs Temp 97.2 F 11/06/18 06:41 Pulse 73 11/06/18 07:18 Resp 18 11/06/18 07:18 BP 137/71 11/06/18 06:41 Pulse Ox 96 11/06/18 07:18 Intake & Output 11/05/18 11/06/18 11/06/18 18:59 06:59 18:59 Intake Total 800 120 Balance 800 120 Intake: Oral 800 120 Other: # Voids 4 3 # Bowel Movements 1 Active Medications: Current Medications Acetaminophen (Tylenol) 650 mg PO Q4HR PRN PRN Reason: Mild Pain / Temp above 100 Stop: 12/29/18 17:42 Last Admin: 11/05/18 16:21 Dose: 650 mg Al Hydrox/Mg Hydrox/Simethicone (Maalox) 30 ml PO Q4HR PRN PRN Reason: GI DISTRESS Stop: 12/29/18 17:42 Albuterol/Ipratropium (Duoneb Neb) 3 ml HHN Q4HRT [facility] Stop: 12/31/18 18:59 Last Admin: 11/06/18 07:18 Dose: 3 ml Atorvastatin Calcium (Lipitor) 40 mg PO HS [facility]; Protocol Stop: 12/29/18 20:59 Last Admin: 11/05/18 20:46 Dose: 40 mg Divalproex Sodium (Depakote Dr) 250 mg PO DAILY [facility]; Protocol Stop: 12/30/18 08:59 Last Admin: 11/05/18 09:47 Dose: Not Given Donepezil HCl (Aricept) 10 mg PO DAILY [facility] Stop: 12/30/18 08:59 Last Admin: 11/05/18 09:47 Dose: Not Given Guaifenesin/Dextromethorphan (Robitussin Dm) 10 ml PO Q8HR PRN PRN Reason: Cough Stop: 01/02/19 17:40 Levofloxacin (Levaquin) 500 mg PO DAILY [facility] Stop: 01/04/19 08:59 Last Admin: 11/05/18 09:47 Dose: Not Given Levothyroxine Sodium (Synthroid) 0.05 mg PO QDAC [facility] Stop: 12/30/18 07:29 Last Admin: 11/06/18 06:37 Dose: 0.05 mg Lorazepam (Ativan) 0.5 mg PO Q4HR PRN; Protocol PRN Reason: anxiety Stop: 12/31/18 12:14 Last Admin: 11/05/18 16:21 Dose: 0.5 mg Losartan Potassium (Cozaar) 25 mg PO DAILY [facility] Stop: 12/30/18 08:59 Last Admin: 11/05/18 09:48 Dose: Not Given Magnesium Hydroxide (Milk Of Magnesia) 30 ml PO HS PRN PRN Reason: Constipation Memantine (Namenda) 10 mg PO BID [facility] Stop: 12/30/18 08:59 Last Admin: 11/05/18 16:21 Dose: 10 mg Multivitamins/Vitamin C (Theragran) 1 tab PO DAILY [facility] Stop: 12/30/18 08:59 Last Admin: 11/05/18 09:48 Dose: Not Given Pantoprazole Sodium (Protonix) 40 mg PO QDAC [facility] Stop: 12/30/18 07:29 Last Admin: 11/06/18 06:37 Dose: 40 mg Sertraline HCl (Zoloft) 25 mg PO DAILY [facility]; Protocol Stop: 12/30/18 08:59 Last Admin: 11/05/18 09:48 Dose: Not Given Tamsulosin HCl (Flomax) 0.4 mg PO HS [facility] Stop: 12/29/18 20:59 Last Admin: 11/05/18 20:45 Dose: 0.4 mg Trazodone HCl (Desyrel) 75 mg PO HS [facility]; Protocol Stop: 12/29/18 20:59 Last Admin: 11/05/18 20:45 Dose: 75 mg Zolpidem Tartrate (Ambien) 5 mg PO HS PRN PRN Reason: Insomnia Stop: 12/29/18 17:42 Last Admin: 11/01/18 23:08 Dose: 5 mg General: Alert, No acute distress HEENT: Atraumatic, PERRLA, EOMI Neck: Supple Cardiovascular: Regular rate, Normal S1, Normal S2 Lungs: Clear to auscultation Abdomen: Bowel sounds, Soft Extremities: no Clubbing, no Cyanosis, no Edema Neurological: Normal gait Assessment/Plan - Assessment Assessment: Psychosis HTN Asthma/COPD chronic bronchitis Dementia Hyperlipidemia GERD BPH Insomnia hypothyroidism - Plan Plan: admit to geropsyche add Albuterol HHN add levothyroxine 50mcg Nutritional Asmnt/Malnutr-PDOC - Dietary Evaluation Malnutrition Findings (Please click <Entered> for more info): Nutritional Asmnt/Malnutrition Start: 11/03/18 14: 52 Text: Status: Complete Freq: Protocol: Document 11/03/18 14:52 [email or web address] (Rec: 11/03/18 15:11 [email or web address]) Nutritional Asmnt/Malnutrition Patient General Information Nutritional Screening Moderate Risk Diagnosis psychosis Pertinent Medical Hx/Surgical Hx HTN, asthma/COPD, dementia, HLD, GERD, BPH, insomnia Subjective Information Pt asleep at visit, unable to arouse with multiple verbal stimulation. RN reports unable to assess if tolerating meals or swallow difficulty as pt refusing meals, likely requires assistance to eat. Swallow eval today with current diet texture recommended by REGISTERED DIET TECHNICIAN. No noted food allergies in chart. Wt obtained by bedscale 10/31, no new wt since. BMI 18.7, borderline underwt. No edema. Current Diet Order/ Nutrition Support pureed, honey-thick liquids Patient / S.O Not Indicated Pertinent Medications Lipitor, Theragran, Protonix, Flomax, PRN MOM Pertinent Labs (10/31) Na 134, Alb 3.1, LDL 61 Nutritional Hx/Data Height 1.83 m Height (Calculated Centimeters) 182.9 Current Weight (lbs) 62.596 kg Weight (Calculated Kilograms) 62.6 Weight (Calculated Grams) 86216.7 [place] Body Weight 178 lb % [place] Body Weight 77 Body Mass Index (BMI) 18.7 Weight Status Approriate GI Symptoms GI Symptoms None Last BM 6/3 Difficult in: Chewing Swallowing Skin Integrity/Comment: dryness per Naveen dugan 14 Current %PO Negligible < 25% Estimated Nutritional Goals BEE in Kcals: Using Current wt Calories/Kcals/Kg 25-30 kcal/kg Kcals Calculated 0346-8811 Protein: Using Current wt Protein g/k-1.2 Protein Calculated 63-76 Fluid: ml 1575-1890ml Nutritional Problem 1. Problem Problem Difficulty swallowing Etiology medical condition Signs/Symptoms: REGISTERED DIET TECHNICIAN rec pureed/honey-thick liquids. 2. Problem Problem Inadequate po intake Etiology lack of appetite Signs/Symptoms: 0% po intake 11/01, none noted , refused breakfast this am per RN Intervention/Recommendation Recommendations by RD Add supplement feedings Comments 1. Continue pureed/honey-thick liquids 2. Add Ensure Enlive 1 carton TID 3. Monitor PO intake, wt, labs and skin integrity Expected Outcomes/Goals Expected Outcomes/Goals 1. PO intake to meet at least 75% of nutritional needs. 2. Wt stability, maintain skin integrity, labs to approach WNL. Betty Garcia, JESUS
[2018-11-06] MEDS: Multivitamin Tab PO SCH (08:09)
[2018-11-07] MEDS: Albuterol/Ipratropium Neb 3 ML AERS HHN SCH ×6 (02:02→22:39)
[2018-11-07] MEDS: Levothyroxine 0.05 Mg Tab PO SCH (06:31)
[2018-11-07] MEDS: Pantoprazole 40 mg EC Tab PO SCH (06:31)
[2018-11-07] MEDS: Multivitamin Tab PO SCH (08:23)
[2018-11-08] MEDS: Albuterol/Ipratropium Neb 3 ML AERS HHN SCH ×6 (02:51→22:56)
--- NOTE | 2018-11-08 05:37 | General Progress Note ---
Subjective - Review of Systems Service Date: 11/08/18 Subjective: Awake, Alert, Afebrile, coughing, VS T98.2 P73 BP 116/60 R 18 Objective - Results Result Diagrams: 10/30/18 14:10 10/30/18 14:10 Recent Labs: Laboratory Last Values WBC 8.8 Th/cmm (4.8-10.8) 10/30/18 14:10 RBC 4.60 Mil/cmm (3.80-5.80) 10/30/18 14:10 Hgb 11.7 gm/dL (12-16) L 10/30/18 14:10 Hct 36.6 % (41.0-60) L 10/30/18 14:10 MCV 79.6 fl (80-99) L 10/30/18 14:10 MCH 25.5 pg (27.0-31.0) L 10/30/18 14:10 MCHC Differential 32.1 pg (28.0-36.0) 10/30/18 14:10 RDW 27.1 % (11.5-20.0) H 10/30/18 14:10 Plt Count 328 Th/cmm (150-400) 10/30/18 14:10 MPV 7.4 fl 10/30/18 14:10 Neutrophils % 80.6 % (40.0-80.0) H 10/30/18 14:10 Lymphocytes % 7.6 % (20.0-50.0) L 10/30/18 14:10 Monocytes % 9.8 % (2.0-10.0) 10/30/18 14:10 Eosinophils % 1.3 % (0.0-5.0) 10/30/18 14:10 Basophils % 0.7 % (0.0-2.0) 10/30/18 14:10 Neutrophils (Manual) Not Reportable 10/30/18 14:10 Sodium 134 mEq/L (136-145) L 10/30/18 14:10 Potassium 3.9 mEq/L (3.5-5.1) 10/30/18 14:10 Chloride 100 mEq/L (98-107) 10/30/18 14:10 Carbon Dioxide 25.5 mEq/L (21.0-31.0) 10/30/18 14:10 Anion Gap 12.4 (7.0-16.0) 10/30/18 14:10 BUN 21 mg/dL (7-25) 10/30/18 14:10 Creatinine 1.1 mg/dL (0.7-1.3) 10/30/18 14:10 Est GFR ( Amer) TNP 10/30/18 14:10 Est GFR (Non-Af Amer) TNP 10/30/18 14:10 BUN/Creatinine Ratio 19.1 10/30/18 14:10 Glucose 101 mg/dL (70-105) 10/30/18 14:10 Calcium 9.0 mg/dL (8.6-10.3) 10/30/18 14:10 Total Bilirubin 0.4 mg/dL (0.3-1.0) 10/30/18 14:10 AST 14 U/L (13-39) 10/30/18 14:10 ALT 10 U/L (7-52) 10/30/18 14:10 Alkaline Phosphatase 79 U/L (34-104) 10/30/18 14:10 Total Protein 7.5 gm/dL (6.0-8.3) 10/30/18 14:10 Albumin 3.1 gm/dL (4.2-5.5) L 10/30/18 14:10 Globulin 4.4 gm/dL 10/30/18 14:10 Albumin/Globulin Ratio 0.7 (1.0-1.8) L 10/30/18 14:10 Triglycerides 63 mg/dL (<150) 10/30/18 14:10 Cholesterol 129 mg/dL (<200) 10/30/18 14:10 LDL Cholesterol Direct 61 mg/dL (75-193) L 10/30/18 14:10 HDL Cholesterol 49 mg/dL (23-92) 10/30/18 14:10 TSH 7.46 uIU/ml (0.34-5.60) H 10/30/18 14:10 Salicylates < 25.0 mg/L (30.0-100.0) L 10/30/18 14:10 Acetaminophen < 10.0 ug/mL (10.0-30.0) L 10/30/18 14:10 Valproic Acid 13.1 ug/mL (50.0-100.0) L 11/07/18 06:20 Ethyl Alcohol < 10 mg/dL (0-10) 10/30/18 14:10 RPR NONREACTIVE (NONREACTIVE) 10/30/18 14:10 - Physical Exam Vitals and I&O: Vital Signs Temp 98.2 F 11/07/18 21:45 Pulse 89 11/08/18 02:51 Resp 18 11/08/18 02:51 BP 116/60 11/07/18 21:45 Pulse Ox 92 11/08/18 02:51 Intake & Output 11/07/18 11/07/18 11/08/18 06:59 18:59 06:59 Intake Total 120 480 Balance 120 480 Intake: Oral 120 360 Other 120 Other: # Voids 2 3 # Bowel Movements 1 1 Stool Characteristics Soft Active Medications: Current Medications Acetaminophen (Tylenol) 650 mg PO Q4HR PRN PRN Reason: Mild Pain / Temp above 100 Stop: 12/29/18 17:42 Last Admin: 11/05/18 16:21 Dose: 650 mg Al Hydrox/Mg Hydrox/Simethicone (Maalox) 30 ml PO Q4HR PRN PRN Reason: GI DISTRESS Stop: 12/29/18 17:42 Albuterol/Ipratropium (Duoneb Neb) 3 ml HHN Q4HRT [facility] Stop: 12/31/18 18:59 Last Admin: 11/08/18 02:51 Dose: 3 ml Atorvastatin Calcium (Lipitor) 40 mg PO HS [facility]; Protocol Stop: 12/29/18 20:59 Last Admin: 11/07/18 20:41 Dose: 40 mg Divalproex Sodium (Depakote Dr) 250 mg PO DAILY [facility]; Protocol Stop: 12/30/18 08:59 Last Admin: 11/07/18 08:24 Dose: 250 mg Donepezil HCl (Aricept) 10 mg PO DAILY [facility] Stop: 12/30/18 08:59 Last Admin: 11/07/18 08:23 Dose: 10 mg Guaifenesin/Dextromethorphan (Robitussin Dm) 10 ml PO Q8HR PRN PRN Reason: Cough Stop: 01/02/19 17:40 Levofloxacin (Levaquin) 500 mg PO DAILY [facility] Stop: 01/04/19 08:59 Last Admin: 11/07/18 08:23 Dose: 500 mg Levothyroxine Sodium (Synthroid) 0.05 mg PO QDAC [facility] Stop: 12/30/18 07:29 Last Admin: 11/07/18 06:31 Dose: 0.05 mg Lorazepam (Ativan) 0.5 mg PO Q4HR PRN; Protocol PRN Reason: anxiety Stop: 12/31/18 12:14 Last Admin: 11/07/18 20:44 Dose: 0.5 mg Losartan Potassium (Cozaar) 25 mg PO DAILY [facility] Stop: 12/30/18 08:59 Last Admin: 11/07/18 08:25 Dose: 25 mg Magnesium Hydroxide (Milk Of Magnesia) 30 ml PO HS PRN PRN Reason: Constipation Memantine (Namenda) 10 mg PO BID [facility] Stop: 12/30/18 08:59 Last Admin: 11/07/18 17:02 Dose: 10 mg Multivitamins/Vitamin C (Theragran) 1 tab PO DAILY [facility] Stop: 12/30/18 08:59 Last Admin: 11/07/18 08:23 Dose: 1 tab Pantoprazole Sodium (Protonix) 40 mg PO QDAC [facility] Stop: 12/30/18 07:29 Last Admin: 11/07/18 06:31 Dose: 40 mg Sertraline HCl (Zoloft) 25 mg PO DAILY [facility]; Protocol Stop: 12/30/18 08:59 Last Admin: 11/07/18 08:24 Dose: 25 mg Tamsulosin HCl (Flomax) 0.4 mg PO HS [facility] Stop: 12/29/18 20:59 Last Admin: 11/07/18 20:42 Dose: 0.4 mg Trazodone HCl (Desyrel) 75 mg PO HS [facility]; Protocol Stop: 12/29/18 20:59 Last Admin: 11/07/18 20:43 Dose: 75 mg General: Alert, No acute distress HEENT: Atraumatic, PERRLA, EOMI Neck: Supple Cardiovascular: Regular rate, Normal S1, Normal S2 Lungs: Clear to auscultation Abdomen: Bowel sounds, Soft Extremities: no Clubbing, no Cyanosis, no Edema Neurological: Normal gait Assessment/Plan - Assessment Assessment: Psychosis HTN Asthma/COPD chronic bronchitis Dementia Hyperlipidemia GERD BPH Insomnia hypothyroidism - Plan Plan: admit to [facility] add Albuterol HHN add levothyroxine 50mcg Nutritional Asmnt/Malnutr-PDOC - Dietary Evaluation Malnutrition Findings (Please click <Entered> for more info): Nutritional Asmnt/Malnutrition Start: 11/03/18 14: 52 Text: Status: Complete Freq: Protocol: Document 11/03/18 14:52 [email or web address] (Rec: 11/03/18 15:11 [email or web address]) Nutritional Asmnt/Malnutrition Patient General Information Nutritional Screening Moderate Risk Diagnosis psychosis Pertinent Medical Hx/Surgical Hx HTN, asthma/COPD, dementia, HLD, GERD, BPH, insomnia Subjective Information Pt asleep at visit, unable to arouse with multiple verbal stimulation. RN reports unable to assess if tolerating meals or swallow difficulty as pt refusing meals, likely requires assistance to eat. Swallow eval today with current diet texture recommended by BRICK SIDING APPLICATOR. No noted food allergies in chart. Wt obtained by bedscale 10/31, no new wt since. BMI 18.7, borderline underwt. No edema. Current Diet Order/ Nutrition Support pureed, honey-thick liquids Patient / S.O Not Indicated Pertinent Medications Lipitor, Theragran, Protonix, Flomax, PRN MOM Pertinent Labs (10/31) Na 134, Alb 3.1, LDL 61 Nutritional Hx/Data Height 1.83 m Height (Calculated Centimeters) 182.9 Current Weight (lbs) 62.596 kg Weight (Calculated Kilograms) 62.6 Weight (Calculated Grams) 72262.7 [place] Body Weight 178 lb % [place] Body Weight 77 Body Mass Index (BMI) 18.7 Weight Status Approriate GI Symptoms GI Symptoms None Last BM 6/3 Difficult in: Chewing Swallowing Skin Integrity/Comment: dryness per Naveen dugan 14 Current %PO Negligible < 25% Estimated Nutritional Goals BEE in Kcals: Using Current wt Calories/Kcals/Kg 25-30 kcal/kg Kcals Calculated 8574-9027 Protein: Using Current wt Protein g/k-1.2 Protein Calculated 63-76 Fluid: ml 1575-1890ml Nutritional Problem 1. Problem Problem Difficulty swallowing Etiology medical condition Signs/Symptoms: BRICK SIDING APPLICATOR rec pureed/honey-thick liquids. 2. Problem Problem Inadequate po intake Etiology lack of appetite Signs/Symptoms: 0% po intake 11/01, none noted , refused breakfast this am per RN Intervention/Recommendation Recommendations by RD Add supplement feedings Comments 1. Continue pureed/honey-thick liquids 2. Add Ensure Enlive 1 carton TID 3. Monitor PO intake, wt, labs and skin integrity Expected Outcomes/Goals Expected Outcomes/Goals 1. PO intake to meet at least 75% of nutritional needs. 2. Wt stability, maintain skin integrity, labs to approach WNL. Betty Garcia, JESUS
[2018-11-08] MEDS: Levothyroxine 0.05 Mg Tab PO SCH (06:31)
[2018-11-08] MEDS: Pantoprazole 40 mg EC Tab PO SCH (06:31)
[2018-11-08] MEDS: Multivitamin Tab PO SCH (08:31)
--- NOTE | 2018-11-08 16:43 | Progress Notes ---
DATE: 11/07/2018 SUBJECTIVE: Chart was reviewed and the patient interviewed. Also discussed the patient's condition with the staff and reviewed the records and labs. The patient seems to be calmer and he seems to be less agitated. The patient also is slightly sedated, but at the same time, he is compliant with taking his medications with no side effects except slight sedation. He also is still at times resisting care. Otherwise, the patient is compliant with taking his medications. ASSESSMENT: The patient is less agitated. TREATMENT PLAN: Continue to monitor his behavior. Also get a Depakote blood level. Also, try to contact family to update them of his condition and left messages and will try again. JOB# [id number]
--- NOTE | 2018-11-08 16:43 | Progress Notes ---
DATE: 11/06/2018 SUBJECTIVE: Chart was reviewed and the patient interviewed. Also discussed the patient's condition with the staff and reviewed records and labs. The patient is still confused and disoriented. The patient also is still selectively mute and still tends to isolate himself and stay by himself most of the time. The patient also still needs redirections, but he is calm and no aggressive behavior or agitation. The patient also is compliant with taking his medications. The patient denies any side effects of medications. ASSESSMENT: The patient is calmer, but still disoriented and needs a lot of monitoring, TREATMENT PLAN: Continue to monitor behavior and condition closely. Also, continue adjusting psychotropic medications and follow up closely. [facility]# [id number]
--- NOTE | 2018-11-08 21:24 | Progress Notes ---
DATE: 11/08/2018 SUBJECTIVE: The patient in the hospital, agitation, combative behaviors, hitting, kicking and striking out. On [id number], the patient is sleeping, arousable, but refusing to talk to me. Per Dr. Schulz's notes, the patient is very confused, agitated, forgetful, all needing a lot of monitoring, still with some yelling and screaming episodes, but less. Some improvement noted. Able to verbalize some of his needs. Medications were noted including doses and frequencies. ASSESSMENT: The patient is still unruly, some agitation noted, but less. PLAN: We will continue to monitor. Continue dosing of Zoloft, Depakote. JOB# [id number]
[2018-11-09] MEDS: Albuterol/Ipratropium Neb 3 ML AERS HHN SCH ×6 (02:11→23:05)
--- NOTE | 2018-11-09 06:10 | General Progress Note ---
Subjective - Review of Systems Service Date: 11/09/18 Subjective: Awake, Alert, Afebrile, coughing, VS T98.0 P90 BP 160/66 R 20 Objective - Results Result Diagrams: 10/30/18 14:10 10/30/18 14:10 Recent Labs: Laboratory Last Values WBC 8.8 Th/cmm (4.8-10.8) 10/30/18 14:10 RBC 4.60 Mil/cmm (3.80-5.80) 10/30/18 14:10 Hgb 11.7 gm/dL (12-16) L 10/30/18 14:10 Hct 36.6 % (41.0-60) L 10/30/18 14:10 MCV 79.6 fl (80-99) L 10/30/18 14:10 MCH 25.5 pg (27.0-31.0) L 10/30/18 14:10 MCHC Differential 32.1 pg (28.0-36.0) 10/30/18 14:10 RDW 27.1 % (11.5-20.0) H 10/30/18 14:10 Plt Count 328 Th/cmm (150-400) 10/30/18 14:10 MPV 7.4 fl 10/30/18 14:10 Neutrophils % 80.6 % (40.0-80.0) H 10/30/18 14:10 Lymphocytes % 7.6 % (20.0-50.0) L 10/30/18 14:10 Monocytes % 9.8 % (2.0-10.0) 10/30/18 14:10 Eosinophils % 1.3 % (0.0-5.0) 10/30/18 14:10 Basophils % 0.7 % (0.0-2.0) 10/30/18 14:10 Neutrophils (Manual) Not Reportable 10/30/18 14:10 Sodium 134 mEq/L (136-145) L 10/30/18 14:10 Potassium 3.9 mEq/L (3.5-5.1) 10/30/18 14:10 Chloride 100 mEq/L (98-107) 10/30/18 14:10 Carbon Dioxide 25.5 mEq/L (21.0-31.0) 10/30/18 14:10 Anion Gap 12.4 (7.0-16.0) 10/30/18 14:10 BUN 21 mg/dL (7-25) 10/30/18 14:10 Creatinine 1.1 mg/dL (0.7-1.3) 10/30/18 14:10 Est GFR ( Amer) TNP 10/30/18 14:10 Est GFR (Non-Af Amer) TNP 10/30/18 14:10 BUN/Creatinine Ratio 19.1 10/30/18 14:10 Glucose 101 mg/dL (70-105) 10/30/18 14:10 Calcium 9.0 mg/dL (8.6-10.3) 10/30/18 14:10 Total Bilirubin 0.4 mg/dL (0.3-1.0) 10/30/18 14:10 AST 14 U/L (13-39) 10/30/18 14:10 ALT 10 U/L (7-52) 10/30/18 14:10 Alkaline Phosphatase 79 U/L (34-104) 10/30/18 14:10 Total Protein 7.5 gm/dL (6.0-8.3) 10/30/18 14:10 Albumin 3.1 gm/dL (4.2-5.5) L 10/30/18 14:10 Globulin 4.4 gm/dL 10/30/18 14:10 Albumin/Globulin Ratio 0.7 (1.0-1.8) L 10/30/18 14:10 Triglycerides 63 mg/dL (<150) 10/30/18 14:10 Cholesterol 129 mg/dL (<200) 10/30/18 14:10 LDL Cholesterol Direct 61 mg/dL (75-193) L 10/30/18 14:10 HDL Cholesterol 49 mg/dL (23-92) 10/30/18 14:10 TSH 7.46 uIU/ml (0.34-5.60) H 10/30/18 14:10 Salicylates < 25.0 mg/L (30.0-100.0) L 10/30/18 14:10 Acetaminophen < 10.0 ug/mL (10.0-30.0) L 10/30/18 14:10 Valproic Acid 13.1 ug/mL (50.0-100.0) L 11/07/18 06:20 Ethyl Alcohol < 10 mg/dL (0-10) 10/30/18 14:10 RPR NONREACTIVE (NONREACTIVE) 10/30/18 14:10 - Physical Exam Vitals and I&O: Vital Signs Temp 98 F 11/09/18 06:06 Pulse 90 11/09/18 06:06 Resp 20 11/09/18 06:06 BP 160/66 11/09/18 06:06 Pulse Ox 96 11/09/18 06:06 Intake & Output 11/08/18 11/08/18 11/09/18 06:59 18:59 06:59 Intake Total 950 360 Output Total 1 Balance 950 359 Intake: Oral 950 360 Output: Urine/Stool Mix 1 Other: # Voids 4 1 # Bowel Movements 2 1 Active Medications: Current Medications Acetaminophen (Tylenol) 650 mg PO Q4HR PRN PRN Reason: Mild Pain / Temp above 100 Stop: 12/29/18 17:42 Last Admin: 11/05/18 16:21 Dose: 650 mg Al Hydrox/Mg Hydrox/Simethicone (Maalox) 30 ml PO Q4HR PRN PRN Reason: GI DISTRESS Stop: 12/29/18 17:42 Albuterol/Ipratropium (Duoneb Neb) 3 ml HHN Q4HRT [facility] Stop: 12/31/18 18:59 Last Admin: 11/09/18 02:11 Dose: 3 ml Atorvastatin Calcium (Lipitor) 40 mg PO HS [facility]; Protocol Stop: 12/29/18 20:59 Last Admin: 11/08/18 21:00 Dose: 40 mg Divalproex Sodium (Depakote Dr) 250 mg PO DAILY [facility]; Protocol Stop: 12/30/18 08:59 Last Admin: 11/08/18 08:31 Dose: 250 mg Donepezil HCl (Aricept) 10 mg PO DAILY [facility] Stop: 12/30/18 08:59 Last Admin: 11/08/18 08:31 Dose: 10 mg Guaifenesin/Dextromethorphan (Robitussin Dm) 10 ml PO Q8HR PRN PRN Reason: Cough Stop: 01/02/19 17:40 Levofloxacin (Levaquin) 500 mg PO DAILY [facility] Stop: 01/04/19 08:59 Last Admin: 11/08/18 08:31 Dose: 500 mg Levothyroxine Sodium (Synthroid) 0.05 mg PO QDAC [facility] Stop: 12/30/18 07:29 Last Admin: 11/08/18 06:31 Dose: 0.05 mg Lorazepam (Ativan) 0.5 mg PO Q4HR PRN; Protocol PRN Reason: anxiety Stop: 12/31/18 12:14 Last Admin: 11/07/18 20:44 Dose: 0.5 mg Losartan Potassium (Cozaar) 25 mg PO DAILY [facility] Stop: 12/30/18 08:59 Last Admin: 11/08/18 08:31 Dose: 25 mg Magnesium Hydroxide (Milk Of Magnesia) 30 ml PO HS PRN PRN Reason: Constipation Memantine (Namenda) 10 mg PO BID [facility] Stop: 12/30/18 08:59 Last Admin: 11/08/18 16:11 Dose: 10 mg Multivitamins/Vitamin C (Theragran) 1 tab PO DAILY [facility] Stop: 12/30/18 08:59 Last Admin: 11/08/18 08:31 Dose: 1 tab Pantoprazole Sodium (Protonix) 40 mg PO QDAC [facility] Stop: 12/30/18 07:29 Last Admin: 11/08/18 06:31 Dose: 40 mg Sertraline HCl (Zoloft) 25 mg PO DAILY [facility]; Protocol Stop: 12/30/18 08:59 Last Admin: 11/08/18 08:31 Dose: 25 mg Tamsulosin HCl (Flomax) 0.4 mg PO HS [facility] Stop: 12/29/18 20:59 Last Admin: 11/08/18 20:59 Dose: 0.4 mg Trazodone HCl (Desyrel) 75 mg PO HS [facility]; Protocol Stop: 12/29/18 20:59 Last Admin: 11/08/18 20:59 Dose: 75 mg General: Alert, No acute distress HEENT: Atraumatic, PERRLA, EOMI Neck: Supple Cardiovascular: Regular rate, Normal S1, Normal S2 Lungs: Clear to auscultation Abdomen: Bowel sounds, Soft Extremities: no Clubbing, no Cyanosis, no Edema Neurological: Normal gait Assessment/Plan - Assessment Assessment: Psychosis HTN elevated Asthma/COPD chronic bronchitis Dementia Hyperlipidemia GERD BPH Insomnia hypothyroidism generalized weakness - Plan Plan: admit to [facility] add Albuterol HHN add levothyroxine 50mcg physical therapy Nutritional Asmnt/Malnutr-PDOC - Dietary Evaluation Malnutrition Findings (Please click <Entered> for more info): Nutritional Asmnt/Malnutrition Start: 11/03/18 14: 52 Text: Status: Complete Freq: Protocol: Document 11/03/18 14:52 [email or web address] (Rec: 11/03/18 15:11 [email or web address]) Nutritional Asmnt/Malnutrition Patient General Information Nutritional Screening Moderate Risk Diagnosis psychosis Pertinent Medical Hx/Surgical Hx HTN, asthma/COPD, dementia, HLD, GERD, BPH, insomnia Subjective Information Pt asleep at visit, unable to arouse with multiple verbal stimulation. RN reports unable to assess if tolerating meals or swallow difficulty as pt refusing meals, likely requires assistance to eat. Swallow eval today with current diet texture recommended by DATA SUPPORT ANALYST. No noted food allergies in chart. Wt obtained by bedscale 10/31, no new wt since. BMI 18.7, borderline underwt. No edema. Current Diet Order/ Nutrition Support pureed, honey-thick liquids Patient / S.O Not Indicated Pertinent Medications Lipitor, Theragran, Protonix, Flomax, PRN MOM Pertinent Labs (10/31) Na 134, Alb 3.1, LDL 61 Nutritional Hx/Data Height 1.83 m Height (Calculated Centimeters) 182.9 Current Weight (lbs) 62.596 kg Weight (Calculated Kilograms) 62.6 Weight (Calculated Grams) 52921.7 [place] Body Weight 178 lb % [place] Body Weight 77 Body Mass Index (BMI) 18.7 Weight Status Approriate GI Symptoms GI Symptoms None Last BM 11/03 Difficult in: Chewing Swallowing Skin Integrity/Comment: dryness per Naveen dugan 14 Current %PO Negligible < 25% Estimated Nutritional Goals BEE in Kcals: Using Current wt Calories/Kcals/Kg 25-30 kcal/kg Kcals Calculated 3127-5549 Protein: Using Current wt Protein g/k-1.2 Protein Calculated 63-76 Fluid: ml 1575-1890ml Nutritional Problem 1. Problem Problem Difficulty swallowing Etiology medical condition Signs/Symptoms: DATA SUPPORT ANALYST rec pureed/honey-thick liquids. 2. Problem Problem Inadequate po intake Etiology lack of appetite Signs/Symptoms: 0% po intake 11/01, none noted , refused breakfast this am per RN Intervention/Recommendation Recommendations by RD Add supplement feedings Comments 1. Continue pureed/honey-thick liquids 2. Add Ensure Enlive 1 carton TID 3. Monitor PO intake, wt, labs and skin integrity Expected Outcomes/Goals Expected Outcomes/Goals 1. PO intake to meet at least 75% of nutritional needs. 2. Wt stability, maintain skin integrity, labs to approach WNL. Betty Garcia RD
[2018-11-09] MEDS: Pantoprazole 40 mg EC Tab PO SCH (06:39)
[2018-11-09] MEDS: Levothyroxine 0.05 Mg Tab PO SCH (06:39)
[2018-11-09] MEDS: Multivitamin Tab PO SCH (09:20)
--- NOTE | 2018-11-09 19:12 | Progress Notes ---
DATE: 11/09/2018 SUBJECTIVE: The patient in the hospital, agitated, combative, aggressive. Nursing staff noting that he is still sometimes kicking and aggressive, but less. Seems to be some improvement in his behaviors. On [id number], he is pretty confused, does not really engage with me whatsoever, after discussed with nursing staff, he slept for about 8-9 hours and we are noting that he is showing some improvements. Medications were noted. No overt side effects. No EPS. Vitals were noted. We will continue to monitor. Monitor for continued improvement. JOB# [id number]
[2018-11-10] MEDS: Albuterol/Ipratropium Neb 3 ML AERS HHN SCH ×6 (02:46→23:02)
[2018-11-10] MEDS: Pantoprazole 40 mg EC Tab PO SCH (06:36)
[2018-11-10] MEDS: Levothyroxine 0.05 Mg Tab PO SCH (06:36)
--- NOTE | 2018-11-10 07:51 | General Progress Note ---
Subjective - Review of Systems Service Date: 11/10/18 Subjective: Awake, Alert, Afebrile, coughing, VS T97.7 P94 BP 142/66 R 20 Objective - Results Result Diagrams: 10/30/18 14:10 10/30/18 14:10 Recent Labs: Laboratory Last Values WBC 8.8 Th/cmm (4.8-10.8) 10/30/18 14:10 RBC 4.60 Mil/cmm (3.80-5.80) 10/30/18 14:10 Hgb 11.7 gm/dL (12-16) L 10/30/18 14:10 Hct 36.6 % (41.0-60) L 10/30/18 14:10 MCV 79.6 fl (80-99) L 10/30/18 14:10 MCH 25.5 pg (27.0-31.0) L 10/30/18 14:10 MCHC Differential 32.1 pg (28.0-36.0) 10/30/18 14:10 RDW 27.1 % (11.5-20.0) H 10/30/18 14:10 Plt Count 328 Th/cmm (150-400) 10/30/18 14:10 MPV 7.4 fl 10/30/18 14:10 Neutrophils % 80.6 % (40.0-80.0) H 10/30/18 14:10 Lymphocytes % 7.6 % (20.0-50.0) L 10/30/18 14:10 Monocytes % 9.8 % (2.0-10.0) 10/30/18 14:10 Eosinophils % 1.3 % (0.0-5.0) 10/30/18 14:10 Basophils % 0.7 % (0.0-2.0) 10/30/18 14:10 Neutrophils (Manual) Not Reportable 10/30/18 14:10 Sodium 134 mEq/L (136-145) L 10/30/18 14:10 Potassium 3.9 mEq/L (3.5-5.1) 10/30/18 14:10 Chloride 100 mEq/L (98-107) 10/30/18 14:10 Carbon Dioxide 25.5 mEq/L (21.0-31.0) 10/30/18 14:10 Anion Gap 12.4 (7.0-16.0) 10/30/18 14:10 BUN 21 mg/dL (7-25) 10/30/18 14:10 Creatinine 1.1 mg/dL (0.7-1.3) 10/30/18 14:10 Est GFR ( Amer) TNP 10/30/18 14:10 Est GFR (Non-Af Amer) TNP 10/30/18 14:10 BUN/Creatinine Ratio 19.1 10/30/18 14:10 Glucose 101 mg/dL (70-105) 10/30/18 14:10 Calcium 9.0 mg/dL (8.6-10.3) 10/30/18 14:10 Total Bilirubin 0.4 mg/dL (0.3-1.0) 10/30/18 14:10 AST 14 U/L (13-39) 10/30/18 14:10 ALT 10 U/L (7-52) 10/30/18 14:10 Alkaline Phosphatase 79 U/L (34-104) 10/30/18 14:10 Total Protein 7.5 gm/dL (6.0-8.3) 10/30/18 14:10 Albumin 3.1 gm/dL (4.2-5.5) L 10/30/18 14:10 Globulin 4.4 gm/dL 10/30/18 14:10 Albumin/Globulin Ratio 0.7 (1.0-1.8) L 10/30/18 14:10 Triglycerides 63 mg/dL (<150) 10/30/18 14:10 Cholesterol 129 mg/dL (<200) 10/30/18 14:10 LDL Cholesterol Direct 61 mg/dL (75-193) L 10/30/18 14:10 HDL Cholesterol 49 mg/dL (23-92) 10/30/18 14:10 TSH 7.46 uIU/ml (0.34-5.60) H 10/30/18 14:10 Salicylates < 25.0 mg/L (30.0-100.0) L 10/30/18 14:10 Acetaminophen < 10.0 ug/mL (10.0-30.0) L 10/30/18 14:10 Valproic Acid 13.1 ug/mL (50.0-100.0) L 11/07/18 06:20 Ethyl Alcohol < 10 mg/dL (0-10) 10/30/18 14:10 RPR NONREACTIVE (NONREACTIVE) 10/30/18 14:10 - Physical Exam Vitals and I&O: Vital Signs Temp 97.7 F 11/10/18 06:24 Pulse 90 11/10/18 07:42 Resp 18 11/10/18 07:42 BP 142/66 11/10/18 06:24 Pulse Ox 95 11/10/18 07:42 Intake & Output 11/09/18 11/10/18 11/10/18 18:59 06:59 18:59 Intake Total 900 240 Balance 900 240 Intake: Oral 900 240 Other: # Voids 4 2 # Bowel Movements 1 Active Medications: Current Medications Acetaminophen (Tylenol) 650 mg PO Q4HR PRN PRN Reason: Mild Pain / Temp above 100 Stop: 12/29/18 17:42 Last Admin: 11/05/18 16:21 Dose: 650 mg Al Hydrox/Mg Hydrox/Simethicone (Maalox) 30 ml PO Q4HR PRN PRN Reason: GI DISTRESS Stop: 12/29/18 17:42 Albuterol/Ipratropium (Duoneb Neb) 3 ml HHN Q4HRT [facility] Stop: 12/31/18 18:59 Last Admin: 11/10/18 07:42 Dose: 3 ml Atorvastatin Calcium (Lipitor) 40 mg PO HS [facility]; Protocol Stop: 12/29/18 20:59 Last Admin: 11/09/18 20:32 Dose: 40 mg Divalproex Sodium (Depakote Dr) 250 mg PO DAILY [facility]; Protocol Stop: 12/30/18 08:59 Last Admin: 11/09/18 09:24 Dose: 250 mg Donepezil HCl (Aricept) 10 mg PO DAILY [facility] Stop: 12/30/18 08:59 Last Admin: 11/09/18 09:26 Dose: 10 mg Guaifenesin/Dextromethorphan (Robitussin Dm) 10 ml PO Q8HR PRN PRN Reason: Cough Stop: 01/02/19 17:40 Levofloxacin (Levaquin) 500 mg PO DAILY [facility] Stop: 01/04/19 08:59 Last Admin: 11/09/18 09:23 Dose: 500 mg Levothyroxine Sodium (Synthroid) 0.05 mg PO QDAC [facility] Stop: 12/30/18 07:29 Last Admin: 11/10/18 06:36 Dose: 0.05 mg Lorazepam (Ativan) 0.5 mg PO Q4HR PRN; Protocol PRN Reason: anxiety Stop: 12/31/18 12:14 Last Admin: 11/07/18 20:44 Dose: 0.5 mg Losartan Potassium (Cozaar) 25 mg PO DAILY [facility] Stop: 12/30/18 08:59 Last Admin: 11/09/18 09:24 Dose: 25 mg Magnesium Hydroxide (Milk Of Magnesia) 30 ml PO HS PRN PRN Reason: Constipation Memantine (Namenda) 10 mg PO BID [facility] Stop: 12/30/18 08:59 Last Admin: 11/09/18 16:48 Dose: 10 mg Multivitamins/Vitamin C (Theragran) 1 tab PO DAILY [facility] Stop: 12/30/18 08:59 Last Admin: 11/09/18 09:20 Dose: 1 tab Pantoprazole Sodium (Protonix) 40 mg PO QDAC [facility] Stop: 12/30/18 07:29 Last Admin: 11/10/18 06:36 Dose: 40 mg Sertraline HCl (Zoloft) 25 mg PO DAILY [facility]; Protocol Stop: 12/30/18 08:59 Last Admin: 11/09/18 09:26 Dose: 25 mg Tamsulosin HCl (Flomax) 0.4 mg PO HS [facility] Stop: 12/29/18 20:59 Last Admin: 11/09/18 20:32 Dose: 0.4 mg Trazodone HCl (Desyrel) 75 mg PO HS [facility]; Protocol Stop: 12/29/18 20:59 Last Admin: 11/09/18 20:32 Dose: 75 mg General: Alert, No acute distress HEENT: Atraumatic, PERRLA, EOMI Neck: Supple Cardiovascular: Regular rate, Normal S1, Normal S2 Lungs: Clear to auscultation Abdomen: Bowel sounds, Soft Extremities: no Clubbing, no Cyanosis, no Edema Neurological: Normal gait Assessment/Plan - Assessment Assessment: Psychosis HTN elevated Asthma/COPD chronic bronchitis Dementia Hyperlipidemia GERD BPH Insomnia hypothyroidism generalized weakness - [facility] add levothyroxine 50mcg physical therapy add clonidine PRN for elevated BP Nutritional Asmnt/Malnutr-PDOC - Dietary Evaluation Malnutrition Findings (Please click <Entered> for more info): Nutritional Asmnt/Malnutrition Start: 11/03/18 14: 52 Text: Status: Complete Freq: Protocol: Document 11/03/18 14:52 [email or web address] (Rec: 11/03/18 15:11 [email or web address]) Nutritional Asmnt/Malnutrition Patient General Information Nutritional Screening Moderate Risk Diagnosis psychosis Pertinent Medical Hx/Surgical Hx HTN, asthma/COPD, dementia, HLD, GERD, BPH, insomnia Subjective Information Pt asleep at visit, unable to arouse with multiple verbal stimulation. RN reports unable to assess if tolerating meals or swallow difficulty as pt refusing meals, likely requires assistance to eat. Swallow eval today with current diet texture recommended by SALES ASSISTANT DISPLAYS. No noted food allergies in chart. Wt obtained by bedscale 10/31, no new wt since. BMI 18.7, borderline underwt. No edema. Current Diet Order/ Nutrition Support pureed, honey-thick liquids Patient / S.O Not Indicated Pertinent Medications Lipitor, Theragran, Protonix, Flomax, PRN MOM Pertinent Labs (10/31) Na 134, Alb 3.1, LDL 61 Nutritional Hx/Data Height 1.83 m Height (Calculated Centimeters) 182.9 Current Weight (lbs) 62.596 kg Weight (Calculated Kilograms) 62.6 Weight (Calculated Grams) 51560.7 [place] Body Weight 178 lb % [place] Body Weight 77 Body Mass Index (BMI) 18.7 Weight Status Approriate GI Symptoms GI Symptoms None Last BM 11/03 Difficult in: Chewing Swallowing Skin Integrity/Comment: dryness per Naveen dugan 14 Current %PO Negligible < 25% Estimated Nutritional Goals BEE in Kcals: Using Current wt Calories/Kcals/Kg 25-30 kcal/kg Kcals Calculated 8837-5968 Protein: Using Current wt Protein g/k-1.2 Protein Calculated 63-76 Fluid: ml 1575-1890ml Nutritional Problem 1. Problem Problem Difficulty swallowing Etiology medical condition Signs/Symptoms: SALES ASSISTANT DISPLAYS rec pureed/honey-thick liquids. 2. Problem Problem Inadequate po intake Etiology lack of appetite Signs/Symptoms: 0% po intake 11/01, none noted , refused breakfast this am per RN Intervention/Recommendation Recommendations by RD Add supplement feedings Comments 1. Continue pureed/honey-thick liquids 2. Add Ensure Enlive 1 carton TID 3. Monitor PO intake, wt, labs and skin integrity Expected Outcomes/Goals Expected Outcomes/Goals 1. PO intake to meet at least 75% of nutritional needs. 2. Wt stability, maintain skin integrity, labs to approach WNL. Betty Garcia RD
[2018-11-10] MEDS: Multivitamin Tab PO SCH ×2 (10:19→17:22)
--- NOTE | 2018-11-11 01:34 | Progress Notes ---
DATE: 11/10/2018 SUBJECTIVE: The patient is an 88-year-old male, currently on oxygen, apparently was hitting and kicking flat folder, very agitated and irritable. The patient noted by staff to be spitting out medications, still unruly, difficult to control behaviors. Fair sleep, mostly wants to be left alone, keeping to himself. Staff having a difficult time controlling his behavior, it is difficult caring for him, withdrawn episodes of forgetfulness. The patient refusing to speak with me today. ASSESSMENT: The patient unruly, still can be aggressive. Difficult to treat symptoms because he is spitting out meds. PLAN: We will continue to monitor, encourage better med compliance. [facility]# [id number]
[2018-11-11] MEDS: Albuterol/Ipratropium Neb 3 ML AERS HHN SCH ×6 (02:03→23:25)
[2018-11-11] MEDS: Levothyroxine 0.05 Mg Tab PO SCH (06:29)
[2018-11-11] MEDS: Pantoprazole 40 mg EC Tab PO SCH (06:29)
[2018-11-11] MEDS: Multivitamin Tab PO SCH (08:13)
[2018-11-12] MEDS: Albuterol/Ipratropium Neb 3 ML AERS HHN SCH ×6 (02:21→23:40)
--- NOTE | 2018-11-12 02:26 | Progress Notes ---
DATE: 11/11/2018 SUBJECTIVE: The patient in the hospital, slept for about 8 hours. No behavioral disturbances, calm, refusing to speak with me today, seems to be a likely approaching his baseline, mostly keeps to himself, isolative, disoriented. No agitation, no escalation of behaviors. Medications were noted including dosages and frequencies. Per high school social studies teacher note, the patient is living at home with . Caregivers will ask high school social studies teacher to confirm a safe discharge plan and followup. The patient seems to be showing signs of improvement. PLAN: Recommend further 24-48 hours of inpatient monitoring. JOB# [id number]
[2018-11-12] MEDS: Levothyroxine 0.05 Mg Tab PO SCH (06:48)
[2018-11-12] MEDS: Pantoprazole 40 mg EC Tab PO SCH (06:48)
[2018-11-12] MEDS: Multivitamin Tab PO SCH (09:40)
--- NOTE | 2018-11-12 15:38 | General Progress Note ---
Subjective - Review of Systems Service Date: 11/12/18 Subjective: Awake, Alert, Afebrile, coughing, VS T97.7 P96 BP 149/69 R 18 Objective - Results Result Diagrams: 10/30/18 14:10 10/30/18 14:10 Recent Labs: Laboratory Last Values WBC 8.8 Th/cmm (4.8-10.8) 10/30/18 14:10 RBC 4.60 Mil/cmm (3.80-5.80) 10/30/18 14:10 Hgb 11.7 gm/dL (12-16) L 10/30/18 14:10 Hct 36.6 % (41.0-60) L 10/30/18 14:10 MCV 79.6 fl (80-99) L 10/30/18 14:10 MCH 25.5 pg (27.0-31.0) L 10/30/18 14:10 MCHC Differential 32.1 pg (28.0-36.0) 10/30/18 14:10 RDW 27.1 % (11.5-20.0) H 10/30/18 14:10 Plt Count 328 Th/cmm (150-400) 10/30/18 14:10 MPV 7.4 fl 10/30/18 14:10 Neutrophils % 80.6 % (40.0-80.0) H 10/30/18 14:10 Lymphocytes % 7.6 % (20.0-50.0) L 10/30/18 14:10 Monocytes % 9.8 % (2.0-10.0) 10/30/18 14:10 Eosinophils % 1.3 % (0.0-5.0) 10/30/18 14:10 Basophils % 0.7 % (0.0-2.0) 10/30/18 14:10 Neutrophils (Manual) Not Reportable 10/30/18 14:10 Sodium 134 mEq/L (136-145) L 10/30/18 14:10 Potassium 3.9 mEq/L (3.5-5.1) 10/30/18 14:10 Chloride 100 mEq/L (98-107) 10/30/18 14:10 Carbon Dioxide 25.5 mEq/L (21.0-31.0) 10/30/18 14:10 Anion Gap 12.4 (7.0-16.0) 10/30/18 14:10 BUN 21 mg/dL (7-25) 10/30/18 14:10 Creatinine 1.1 mg/dL (0.7-1.3) 10/30/18 14:10 Est GFR ( Amer) TNP 10/30/18 14:10 Est GFR (Non-Af Amer) TNP 10/30/18 14:10 BUN/Creatinine Ratio 19.1 10/30/18 14:10 Glucose 101 mg/dL (70-105) 10/30/18 14:10 Calcium 9.0 mg/dL (8.6-10.3) 10/30/18 14:10 Total Bilirubin 0.4 mg/dL (0.3-1.0) 10/30/18 14:10 AST 14 U/L (13-39) 10/30/18 14:10 ALT 10 U/L (7-52) 10/30/18 14:10 Alkaline Phosphatase 79 U/L (34-104) 10/30/18 14:10 Total Protein 7.5 gm/dL (6.0-8.3) 10/30/18 14:10 Albumin 3.1 gm/dL (4.2-5.5) L 10/30/18 14:10 Globulin 4.4 gm/dL 10/30/18 14:10 Albumin/Globulin Ratio 0.7 (1.0-1.8) L 10/30/18 14:10 Triglycerides 63 mg/dL (<150) 10/30/18 14:10 Cholesterol 129 mg/dL (<200) 10/30/18 14:10 LDL Cholesterol Direct 61 mg/dL (75-193) L 10/30/18 14:10 HDL Cholesterol 49 mg/dL (23-92) 10/30/18 14:10 TSH 7.46 uIU/ml (0.34-5.60) H 10/30/18 14:10 Salicylates < 25.0 mg/L (30.0-100.0) L 10/30/18 14:10 Acetaminophen < 10.0 ug/mL (10.0-30.0) L 10/30/18 14:10 Valproic Acid 13.1 ug/mL (50.0-100.0) L 11/07/18 06:20 Ethyl Alcohol < 10 mg/dL (0-10) 10/30/18 14:10 RPR NONREACTIVE (NONREACTIVE) 10/30/18 14:10 - Physical Exam Vitals and I&O: Vital Signs Temp 97.7 F 11/12/18 06:00 Pulse 100 11/12/18 14:21 Resp 18 11/12/18 14:21 BP 149/69 11/12/18 09:40 Pulse Ox 93 11/12/18 14:21 Intake & Output 11/11/18 11/12/18 11/12/18 18:59 06:59 18:59 Intake Total 180 Balance 180 Intake: Oral 180 Other: # Voids 2 1 # Bowel Movements 0 1 Stool Characteristics Formed Active Medications: Current Medications Acetaminophen (Tylenol) 650 mg PO Q4HR PRN PRN Reason: Mild Pain / Temp above 100 Stop: 12/29/18 17:42 Last Admin: 11/05/18 16:21 Dose: 650 mg Al Hydrox/Mg Hydrox/Simethicone (Maalox) 30 ml PO Q4HR PRN PRN Reason: GI DISTRESS Stop: 12/29/18 17:42 Albuterol/Ipratropium (Duoneb Neb) 3 ml HHN Q4HRT [facility] Stop: 12/31/18 18:59 Last Admin: 11/12/18 14:21 Dose: 3 ml Atorvastatin Calcium (Lipitor) 40 mg PO HS [facility]; Protocol Stop: 12/29/18 20:59 Last Admin: 11/11/18 21:40 Dose: 40 mg Donepezil HCl (Aricept) 10 mg PO DAILY [facility] Stop: 12/30/18 08:59 Last Admin: 11/12/18 09:40 Dose: 10 mg Guaifenesin/Dextromethorphan (Robitussin Dm) 10 ml PO Q8HR PRN PRN Reason: Cough Stop: 01/02/19 17:40 Levofloxacin (Levaquin) 500 mg PO DAILY [facility] Stop: 01/04/19 08:59 Last Admin: 11/12/18 09:40 Dose: 500 mg Levothyroxine Sodium (Synthroid) 0.05 mg PO QDAC [facility] Stop: 12/30/18 07:29 Last Admin: 11/12/18 06:48 Dose: 0.05 mg Lorazepam (Ativan) 0.5 mg PO Q4HR PRN; Protocol PRN Reason: anxiety Stop: 12/31/18 12:14 Last Admin: 11/07/18 20:44 Dose: 0.5 mg Losartan Potassium (Cozaar) 25 mg PO DAILY [facility] Stop: 12/30/18 08:59 Last Admin: 11/12/18 09:40 Dose: 25 mg Magnesium Hydroxide (Milk Of Magnesia) 30 ml PO HS PRN PRN Reason: Constipation Memantine (Namenda) 10 mg PO HS [facility] Stop: 01/11/19 20:59 Multivitamins/Vitamin C (Theragran) 1 tab PO DAILY [facility] Stop: 12/30/18 08:59 Last Admin: 11/12/18 09:40 Dose: 1 tab Pantoprazole Sodium (Protonix) 40 mg PO QDAC [facility] Stop: 12/30/18 07:29 Last Admin: 11/12/18 06:48 Dose: 40 mg Quetiapine Fumarate (Seroquel) 25 mg PO HS [facility]; Protocol Stop: 01/11/19 20:59 Sertraline HCl (Zoloft) 50 mg PO DAILY [facility]; Protocol Stop: 01/11/19 08:59 Last Admin: 11/12/18 09:23 Dose: 50 mg Tamsulosin HCl (Flomax) 0.4 mg PO HS [facility] Stop: 12/29/18 20:59 Last Admin: 11/11/18 21:40 Dose: 0.4 mg Trazodone HCl (Desyrel) 25 mg PO HS [facility]; Protocol Stop: 01/11/19 20:59 General: Alert, No acute distress HEENT: Atraumatic, PERRLA, EOMI Neck: Supple Cardiovascular: Regular rate, Normal S1, Normal S2 Lungs: Clear to auscultation Abdomen: Bowel sounds, Soft Extremities: no Clubbing, no Cyanosis, no Edema Neurological: Normal gait Assessment/Plan - Assessment Assessment: Psychosis HTN elevated Asthma/COPD chronic bronchitis Dementia Hyperlipidemia GERD BPH Insomnia hypothyroidism generalized weakness - Plan Plan: admit to [facility] add Albuterol HHN add levothyroxine 50mcg physical therapy add clonidine PRN for elevated BP Nutritional Asmnt/Malnutr-PDOC - Dietary Evaluation Malnutrition Findings (Please click <Entered> for more info): Nutritional Asmnt/Malnutrition Start: 11/03/18 14: 52 Text: Status: Complete Freq: Protocol: Document 11/03/18 14:52 [email or web address] (Rec: 11/03/18 15:11 [email or web address]) Nutritional Asmnt/Malnutrition Patient General Information Nutritional Screening Moderate Risk Diagnosis psychosis Pertinent Medical Hx/Surgical Hx HTN, asthma/COPD, dementia, HLD, GERD, BPH, insomnia Subjective Information Pt asleep at visit, unable to arouse with multiple verbal stimulation. RN reports unable to assess if tolerating meals or swallow difficulty as pt refusing meals, likely requires assistance to eat. Swallow eval today with current diet texture recommended by HYDROELECTRIC PLANT OPERATOR. No noted food allergies in chart. Wt obtained by bedscale 10/31, no new wt since. BMI 18.7, borderline underwt. No edema. Current Diet Order/ Nutrition Support pureed, honey-thick liquids Patient / S.O Not Indicated Pertinent Medications Lipitor, Theragran, Protonix, Flomax, PRN MOM Pertinent Labs (10/31) Na 134, Alb 3.1, LDL 61 Nutritional Hx/Data Height 1.83 m Height (Calculated Centimeters) 182.9 Current Weight (lbs) 62.596 kg Weight (Calculated Kilograms) 62.6 Weight (Calculated Grams) 42609.7 [place] Body Weight 178 lb % [place] Body Weight 77 Body Mass Index (BMI) 18.7 Weight Status Approriate GI Symptoms GI Symptoms None Last BM 6/ Difficult in: Chewing Swallowing Skin Integrity/Comment: dryness per Naveen dugan 14 Current %PO Negligible < 25% Estimated Nutritional Goals BEE in Kcals: Using Current wt Calories/Kcals/Kg 25-30 kcal/kg Kcals Calculated 9960-0487 Protein: Using Current wt Protein g/k-1.2 Protein Calculated 63-76 Fluid: ml 1575-1890ml Nutritional Problem 1. Problem Problem Difficulty swallowing Etiology medical condition Signs/Symptoms: HYDROELECTRIC PLANT OPERATOR rec pureed/honey-thick liquids. 2. Problem Problem Inadequate po intake Etiology lack of appetite Signs/Symptoms: 0% po intake 11/01, none noted , refused breakfast this am per RN Intervention/Recommendation Recommendations by RD Add supplement feedings Comments 1. Continue pureed/honey-thick liquids 2. Add Ensure Enlive 1 carton TID 3. Monitor PO intake, wt, labs and skin integrity Expected Outcomes/Goals Expected Outcomes/Goals 1. PO intake to meet at least 75% of nutritional needs. 2. Wt stability, maintain skin integrity, labs to approach WNL. Betty Garcia RD
--- NOTE | 2018-11-12 15:41 | General Progress Note ---
Subjective - Review of Systems Service Date: 11/11/18 Subjective: Awake, Alert, Afebrile, coughing, VS T99.7 P103 BP 138/63 R 18 Objective - Results Result Diagrams: 10/30/18 14:10 10/30/18 14:10 Recent Labs: Laboratory Last Values WBC 8.8 Th/cmm (4.8-10.8) 10/30/18 14:10 RBC 4.60 Mil/cmm (3.80-5.80) 10/30/18 14:10 Hgb 11.7 gm/dL (12-16) L 10/30/18 14:10 Hct 36.6 % (41.0-60) L 10/30/18 14:10 MCV 79.6 fl (80-99) L 10/30/18 14:10 MCH 25.5 pg (27.0-31.0) L 10/30/18 14:10 MCHC Differential 32.1 pg (28.0-36.0) 10/30/18 14:10 RDW 27.1 % (11.5-20.0) H 10/30/18 14:10 Plt Count 328 Th/cmm (150-400) 10/30/18 14:10 MPV 7.4 fl 10/30/18 14:10 Neutrophils % 80.6 % (40.0-80.0) H 10/30/18 14:10 Lymphocytes % 7.6 % (20.0-50.0) L 10/30/18 14:10 Monocytes % 9.8 % (2.0-10.0) 10/30/18 14:10 Eosinophils % 1.3 % (0.0-5.0) 10/30/18 14:10 Basophils % 0.7 % (0.0-2.0) 10/30/18 14:10 Neutrophils (Manual) Not Reportable 10/30/18 14:10 Sodium 134 mEq/L (136-145) L 10/30/18 14:10 Potassium 3.9 mEq/L (3.5-5.1) 10/30/18 14:10 Chloride 100 mEq/L (98-107) 10/30/18 14:10 Carbon Dioxide 25.5 mEq/L (21.0-31.0) 10/30/18 14:10 Anion Gap 12.4 (7.0-16.0) 10/30/18 14:10 BUN 21 mg/dL (7-25) 10/30/18 14:10 Creatinine 1.1 mg/dL (0.7-1.3) 10/30/18 14:10 Est GFR ( Amer) TNP 10/30/18 14:10 Est GFR (Non-Af Amer) TNP 10/30/18 14:10 BUN/Creatinine Ratio 19.1 10/30/18 14:10 Glucose 101 mg/dL (70-105) 10/30/18 14:10 Calcium 9.0 mg/dL (8.6-10.3) 10/30/18 14:10 Total Bilirubin 0.4 mg/dL (0.3-1.0) 10/30/18 14:10 AST 14 U/L (13-39) 10/30/18 14:10 ALT 10 U/L (7-52) 10/30/18 14:10 Alkaline Phosphatase 79 U/L (34-104) 10/30/18 14:10 Total Protein 7.5 gm/dL (6.0-8.3) 10/30/18 14:10 Albumin 3.1 gm/dL (4.2-5.5) L 10/30/18 14:10 Globulin 4.4 gm/dL 10/30/18 14:10 Albumin/Globulin Ratio 0.7 (1.0-1.8) L 10/30/18 14:10 Triglycerides 63 mg/dL (<150) 10/30/18 14:10 Cholesterol 129 mg/dL (<200) 10/30/18 14:10 LDL Cholesterol Direct 61 mg/dL (75-193) L 10/30/18 14:10 HDL Cholesterol 49 mg/dL (23-92) 10/30/18 14:10 TSH 7.46 uIU/ml (0.34-5.60) H 10/30/18 14:10 Salicylates < 25.0 mg/L (30.0-100.0) L 10/30/18 14:10 Acetaminophen < 10.0 ug/mL (10.0-30.0) L 10/30/18 14:10 Valproic Acid 13.1 ug/mL (50.0-100.0) L 11/07/18 06:20 Ethyl Alcohol < 10 mg/dL (0-10) 10/30/18 14:10 RPR NONREACTIVE (NONREACTIVE) 10/30/18 14:10 - Physical Exam Vitals and I&O: Vital Signs Temp 97.7 F 11/12/18 06:00 Pulse 100 11/12/18 14:21 Resp 18 11/12/18 14:21 BP 149/69 11/12/18 09:40 Pulse Ox 93 11/12/18 14:21 Intake & Output 11/11/18 11/12/18 11/12/18 18:59 06:59 18:59 Intake Total 180 Balance 180 Intake: Oral 180 Other: # Voids 2 1 # Bowel Movements 0 1 Stool Characteristics Formed Active Medications: Current Medications Acetaminophen (Tylenol) 650 mg PO Q4HR PRN PRN Reason: Mild Pain / Temp above 100 Stop: 12/29/18 17:42 Last Admin: 11/05/18 16:21 Dose: 650 mg Al Hydrox/Mg Hydrox/Simethicone (Maalox) 30 ml PO Q4HR PRN PRN Reason: GI DISTRESS Stop: 12/29/18 17:42 Albuterol/Ipratropium (Duoneb Neb) 3 ml HHN Q4HRT [facility] Stop: 12/31/18 18:59 Last Admin: 11/12/18 14:21 Dose: 3 ml Atorvastatin Calcium (Lipitor) 40 mg PO HS [facility]; Protocol Stop: 12/29/18 20:59 Last Admin: 11/11/18 21:40 Dose: 40 mg Donepezil HCl (Aricept) 10 mg PO DAILY [facility] Stop: 12/30/18 08:59 Last Admin: 11/12/18 09:40 Dose: 10 mg Guaifenesin/Dextromethorphan (Robitussin Dm) 10 ml PO Q8HR PRN PRN Reason: Cough Stop: 01/02/19 17:40 Levofloxacin (Levaquin) 500 mg PO DAILY [facility] Stop: 01/04/19 08:59 Last Admin: 11/12/18 09:40 Dose: 500 mg Levothyroxine Sodium (Synthroid) 0.05 mg PO QDAC [facility] Stop: 12/30/18 07:29 Last Admin: 11/12/18 06:48 Dose: 0.05 mg Lorazepam (Ativan) 0.5 mg PO Q4HR PRN; Protocol PRN Reason: anxiety Stop: 12/31/18 12:14 Last Admin: 11/07/18 20:44 Dose: 0.5 mg Losartan Potassium (Cozaar) 25 mg PO DAILY [facility] Stop: 12/30/18 08:59 Last Admin: 11/12/18 09:40 Dose: 25 mg Magnesium Hydroxide (Milk Of Magnesia) 30 ml PO HS PRN PRN Reason: Constipation Memantine (Namenda) 10 mg PO HS [facility] Stop: 01/11/19 20:59 Multivitamins/Vitamin C (Theragran) 1 tab PO DAILY [facility] Stop: 12/30/18 08:59 Last Admin: 11/12/18 09:40 Dose: 1 tab Pantoprazole Sodium (Protonix) 40 mg PO QDAC [facility] Stop: 12/30/18 07:29 Last Admin: 11/12/18 06:48 Dose: 40 mg Quetiapine Fumarate (Seroquel) 25 mg PO HS [facility]; Protocol Stop: 01/11/19 20:59 Sertraline HCl (Zoloft) 50 mg PO DAILY [facility]; Protocol Stop: 01/11/19 08:59 Last Admin: 11/12/18 09:23 Dose: 50 mg Tamsulosin HCl (Flomax) 0.4 mg PO HS [facility] Stop: 12/29/18 20:59 Last Admin: 11/11/18 21:40 Dose: 0.4 mg Trazodone HCl (Desyrel) 25 mg PO HS [facility]; Protocol Stop: 01/11/19 20:59 General: Alert, No acute distress HEENT: Atraumatic, PERRLA, EOMI Neck: Supple Cardiovascular: Regular rate, Normal S1, Normal S2 Lungs: Clear to auscultation Abdomen: Bowel sounds, Soft Extremities: no Clubbing, no Cyanosis, no Edema Neurological: Normal gait Assessment/Plan - Assessment Assessment: Psychosis HTN elevated Asthma/COPD chronic bronchitis Dementia Hyperlipidemia GERD BPH Insomnia hypothyroidism generalized weakness - Plan Plan: admit to [facility] add Albuterol HHN add levothyroxine 50mcg physical therapy add clonidine PRN for elevated BP Nutritional Asmnt/Malnutr-PDOC - Dietary Evaluation Malnutrition Findings (Please click <Entered> for more info): Nutritional Asmnt/Malnutrition Start: 11/03/18 14: 52 Text: Status: Complete Freq: Protocol: Document 11/03/18 14:52 [email or web address] (Rec: 11/03/18 15:11 [email or web address]) Nutritional Asmnt/Malnutrition Patient General Information Nutritional Screening Moderate Risk Diagnosis psychosis Pertinent Medical Hx/Surgical Hx HTN, asthma/COPD, dementia, HLD, GERD, BPH, insomnia Subjective Information Pt asleep at visit, unable to arouse with multiple verbal stimulation. RN reports unable to assess if tolerating meals or swallow difficulty as pt refusing meals, likely requires assistance to eat. Swallow eval today with current diet texture recommended by TALK SHOW HOST. No noted food allergies in chart. Wt obtained by bedscale 10/31, no new wt since. BMI 18.7, borderline underwt. No edema. Current Diet Order/ Nutrition Support pureed, honey-thick liquids Patient / S.O Not Indicated Pertinent Medications Lipitor, Theragran, Protonix, Flomax, PRN MOM Pertinent Labs (10/31) Na 134, Alb 3.1, LDL 61 Nutritional Hx/Data Height 1.83 m Height (Calculated Centimeters) 182.9 Current Weight (lbs) 62.596 kg Weight (Calculated Kilograms) 62.6 Weight (Calculated Grams) 43311.7 [place] Body Weight 178 lb % [place] Body Weight 77 Body Mass Index (BMI) 18.7 Weight Status Approriate GI Symptoms GI Symptoms None Last BM 6/ Difficult in: Chewing Swallowing Skin Integrity/Comment: dryness per Naveen dugan 14 Current %PO Negligible < 25% Estimated Nutritional Goals BEE in Kcals: Using Current wt Calories/Kcals/Kg 25-30 kcal/kg Kcals Calculated 2903-7635 Protein: Using Current wt Protein g/k-1.2 Protein Calculated 63-76 Fluid: ml 1575-1890ml Nutritional Problem 1. Problem Problem Difficulty swallowing Etiology medical condition Signs/Symptoms: TALK SHOW HOST rec pureed/honey-thick liquids. 2. Problem Problem Inadequate po intake Etiology lack of appetite Signs/Symptoms: 0% po intake 11/01, none noted , refused breakfast this am per RN Intervention/Recommendation Recommendations by RD Add supplement feedings Comments 1. Continue pureed/honey-thick liquids 2. Add Ensure Enlive 1 carton TID 3. Monitor PO intake, wt, labs and skin integrity Expected Outcomes/Goals Expected Outcomes/Goals 1. PO intake to meet at least 75% of nutritional needs. 2. Wt stability, maintain skin integrity, labs to approach WNL. Betty Garcia RD
--- NOTE | 2018-11-13 02:37 | Progress Notes ---
DATE: 11/12/2018 SUBJECTIVE: Chart was reviewed and the patient interviewed. Also discussed the patient's condition with the staff and reviewed records and labs. The patient is still sleepy during the day and he also is still having poor appetite, although appetite is slightly improved and he ate about 30% of his meal according to staff. Also, the patient is less agitated and less irritable, but he on the other hand seems to be more sedated. No agitation and no aggressive behavior. I discussed his condition ____ who is his child welfare caseworker. She agreed about my discussion and about my observation. Also, I discussed with her change in the medications including starting the patient on Seroquel and she agreed and she said that was in the plan from before. Also, she added that Depakote was not effective in the treatment. I also discussed with the patient sending the patient temporarily till to a nursing facility, [facility], ____ agreed to do so also for physical therapy since the patient has not been walking and unsteady gait and also because of weakness. MENTAL STATUS EXAMINATION: The patient is calm. Sedated. Minimum interaction and response. Also seems to be confused. No aggressive behavior or agitation. ASSESSMENT: The patient is still psychotic and is also mildly depressed and forgetful. TREATMENT PLAN: We will plan to stop Depakote since it is not helping and the last Depakote level that was done on 11/07/2018 was 13.1. Also, we will decrease trazodone to 25 mg at bedtime and will decrease Namenda to 10 mg at bedtime. Also, we will start the patient on Seroquel 12.5 mg at bedtime and we will adjust the dose. Also, we will increase Zoloft to 50 mg every morning and we will continue to follow up closely. Also, we will try to make arrangements for the patient admitted to [facility] after a couple of days or so to observe him in those couple of days with the change in the medications and also to go to [facility] for physical therapy and rehabilitation. JOB# [id number]
[2018-11-13] MEDS: Albuterol/Ipratropium Neb 3 ML AERS HHN SCH ×6 (03:00→23:41)
[2018-11-13] MEDS: Pantoprazole 40 mg EC Tab PO SCH (06:31)
[2018-11-13] MEDS: Levothyroxine 0.05 Mg Tab PO SCH (06:32)
[2018-11-13] MEDS: Multivitamin Tab PO SCH (08:22)
--- NOTE | 2018-11-13 08:23 | General Progress Note ---
Subjective - Review of Systems Service Date: 11/13/18 Subjective: Awake, Alert, Afebrile, coughing, VS T98.2 P101 BP 143/71 R 18 Objective - Results Result Diagrams: 10/30/18 14:10 10/30/18 14:10 Recent Labs: Laboratory Last Values WBC 8.8 Th/cmm (4.8-10.8) 10/30/18 14:10 RBC 4.60 Mil/cmm (3.80-5.80) 10/30/18 14:10 Hgb 11.7 gm/dL (12-16) L 10/30/18 14:10 Hct 36.6 % (41.0-60) L 10/30/18 14:10 MCV 79.6 fl (80-99) L 10/30/18 14:10 MCH 25.5 pg (27.0-31.0) L 10/30/18 14:10 MCHC Differential 32.1 pg (28.0-36.0) 10/30/18 14:10 RDW 27.1 % (11.5-20.0) H 10/30/18 14:10 Plt Count 328 Th/cmm (150-400) 10/30/18 14:10 MPV 7.4 fl 10/30/18 14:10 Neutrophils % 80.6 % (40.0-80.0) H 10/30/18 14:10 Lymphocytes % 7.6 % (20.0-50.0) L 10/30/18 14:10 Monocytes % 9.8 % (2.0-10.0) 10/30/18 14:10 Eosinophils % 1.3 % (0.0-5.0) 10/30/18 14:10 Basophils % 0.7 % (0.0-2.0) 10/30/18 14:10 Neutrophils (Manual) Not Reportable 10/30/18 14:10 Sodium 134 mEq/L (136-145) L 10/30/18 14:10 Potassium 3.9 mEq/L (3.5-5.1) 10/30/18 14:10 Chloride 100 mEq/L (98-107) 10/30/18 14:10 Carbon Dioxide 25.5 mEq/L (21.0-31.0) 10/30/18 14:10 Anion Gap 12.4 (7.0-16.0) 10/30/18 14:10 BUN 21 mg/dL (7-25) 10/30/18 14:10 Creatinine 1.1 mg/dL (0.7-1.3) 10/30/18 14:10 Est GFR ( Amer) TNP 10/30/18 14:10 Est GFR (Non-Af Amer) TNP 10/30/18 14:10 BUN/Creatinine Ratio 19.1 10/30/18 14:10 Glucose 101 mg/dL (70-105) 10/30/18 14:10 Calcium 9.0 mg/dL (8.6-10.3) 10/30/18 14:10 Total Bilirubin 0.4 mg/dL (0.3-1.0) 10/30/18 14:10 AST 14 U/L (13-39) 10/30/18 14:10 ALT 10 U/L (7-52) 10/30/18 14:10 Alkaline Phosphatase 79 U/L (34-104) 10/30/18 14:10 Total Protein 7.5 gm/dL (6.0-8.3) 10/30/18 14:10 Albumin 3.1 gm/dL (4.2-5.5) L 10/30/18 14:10 Globulin 4.4 gm/dL 10/30/18 14:10 Albumin/Globulin Ratio 0.7 (1.0-1.8) L 10/30/18 14:10 Triglycerides 63 mg/dL (<150) 10/30/18 14:10 Cholesterol 129 mg/dL (<200) 10/30/18 14:10 LDL Cholesterol Direct 61 mg/dL (75-193) L 10/30/18 14:10 HDL Cholesterol 49 mg/dL (23-92) 10/30/18 14:10 TSH 7.46 uIU/ml (0.34-5.60) H 10/30/18 14:10 Salicylates < 25.0 mg/L (30.0-100.0) L 10/30/18 14:10 Acetaminophen < 10.0 ug/mL (10.0-30.0) L 10/30/18 14:10 Valproic Acid 13.1 ug/mL (50.0-100.0) L 11/07/18 06:20 Ethyl Alcohol < 10 mg/dL (0-10) 10/30/18 14:10 RPR NONREACTIVE (NONREACTIVE) 10/30/18 14:10 - Physical Exam Vitals and I&O: Vital Signs Temp 98.2 F 11/13/18 06:26 Pulse 101 11/13/18 07:05 Resp 18 11/13/18 07:05 BP 143/71 11/13/18 06:26 Pulse Ox 92 11/13/18 07:05 Intake & Output 11/12/18 11/13/18 11/13/18 18:59 06:59 18:59 Other: # Voids 2 Stool Characteristics Formed Active Medications: Current Medications Acetaminophen (Tylenol) 650 mg PO Q4HR PRN PRN Reason: Mild Pain / Temp above 100 Stop: 12/29/18 17:42 Last Admin: 11/05/18 16:21 Dose: 650 mg Al Hydrox/Mg Hydrox/Simethicone (Maalox) 30 ml PO Q4HR PRN PRN Reason: GI DISTRESS Stop: 12/29/18 17:42 Albuterol/Ipratropium (Duoneb Neb) 3 ml HHN Q4HRT [facility] Stop: 12/31/18 18:59 Last Admin: 11/13/18 07:05 Dose: 3 ml Atorvastatin Calcium (Lipitor) 40 mg PO HS [facility]; Protocol Stop: 12/29/18 20:59 Last Admin: 11/12/18 20:44 Dose: 40 mg Donepezil HCl (Aricept) 10 mg PO DAILY [facility] Stop: 12/30/18 08:59 Last Admin: 11/12/18 09:40 Dose: 10 mg Guaifenesin/Dextromethorphan (Robitussin Dm) 10 ml PO Q8HR PRN PRN Reason: Cough Stop: 01/02/19 17:40 Levothyroxine Sodium (Synthroid) 0.05 mg PO QDAC [facility] Stop: 12/30/18 07:29 Last Admin: 11/13/18 06:32 Dose: 0.05 mg Lorazepam (Ativan) 0.5 mg PO Q4HR PRN; Protocol PRN Reason: anxiety Stop: 12/31/18 12:14 Last Admin: 11/07/18 20:44 Dose: 0.5 mg Losartan Potassium (Cozaar) 25 mg PO DAILY [facility] Stop: 12/30/18 08:59 Last Admin: 11/12/18 09:40 Dose: 25 mg Magnesium Hydroxide (Milk Of Magnesia) 30 ml PO HS PRN PRN Reason: Constipation Memantine (Namenda) 10 mg PO HS [facility] Stop: 01/11/19 20:59 Last Admin: 11/12/18 20:45 Dose: 10 mg Multivitamins/Vitamin C (Theragran) 1 tab PO DAILY [facility] Stop: 12/30/18 08:59 Last Admin: 11/12/18 09:40 Dose: 1 tab Pantoprazole Sodium (Protonix) 40 mg PO QDAC [facility] Stop: 12/30/18 07:29 Last Admin: 11/13/18 06:31 Dose: 40 mg Quetiapine Fumarate (Seroquel) 25 mg PO HS [facility]; Protocol Stop: 01/11/19 20:59 Last Admin: 11/12/18 20:45 Dose: 25 mg Sertraline HCl (Zoloft) 50 mg PO DAILY [facility]; Protocol Stop: 01/11/19 08:59 Last Admin: 11/12/18 09:23 Dose: 50 mg Tamsulosin HCl (Flomax) 0.4 mg PO HS [facility] Stop: 12/29/18 20:59 Last Admin: 11/12/18 20:45 Dose: 0.4 mg Trazodone HCl (Desyrel) 25 mg PO HS [facility]; Protocol Stop: 01/11/19 20:59 Last Admin: 11/12/18 20:46 Dose: 25 mg General: Alert, No acute distress HEENT: Atraumatic, PERRLA, EOMI Neck: Supple Cardiovascular: Regular rate, Normal S1, Normal S2 Lungs: Clear to auscultation Abdomen: Bowel sounds, Soft Extremities: no Clubbing, no Cyanosis, no Edema Neurological: Normal gait Assessment/Plan - Assessment Assessment: Psychosis HTN elevated Asthma/COPD chronic bronchitis Dementia Hyperlipidemia GERD BPH Insomnia hypothyroidism generalized weakness - Plan Plan: continue current treatment physical therapy Nutritional Asmnt/Malnutr-PDOC - Dietary Evaluation Malnutrition Findings (Please click <Entered> for more info): Nutritional Asmnt/Malnutrition Start: 11/03/18 14: 52 Text: Status: Complete Freq: Protocol: Document 11/03/18 14:52 [email or web address] (Rec: 11/03/18 15:11 [email or web address]) Nutritional Asmnt/Malnutrition Patient General Information Nutritional Screening Moderate Risk Diagnosis psychosis Pertinent Medical Hx/Surgical Hx HTN, asthma/COPD, dementia, HLD, GERD, BPH, insomnia Subjective Information Pt asleep at visit, unable to arouse with multiple verbal stimulation. RN reports unable to assess if tolerating meals or swallow difficulty as pt refusing meals, likely requires assistance to eat. Swallow eval today with current diet texture recommended by SCALE AND SKIP CAR OPERATOR. No noted food allergies in chart. Wt obtained by bedscale 10/31, no new wt since. BMI 18.7, borderline underwt. No edema. Current Diet Order/ Nutrition Support pureed, honey-thick liquids Patient / S.O Not Indicated Pertinent Medications Lipitor, Theragran, Protonix, Flomax, PRN MOM Pertinent Labs (10/31) Na 134, Alb 3.1, LDL 61 Nutritional Hx/Data Height 1.83 m Height (Calculated Centimeters) 182.9 Current Weight (lbs) 62.596 kg Weight (Calculated Kilograms) 62.6 Weight (Calculated Grams) 26323.7 [place] Body Weight 178 lb % [place] Body Weight 77 Body Mass Index (BMI) 18.7 Weight Status Approriate GI Symptoms GI Symptoms None Last BM 11/03 Difficult in: Chewing Swallowing Skin Integrity/Comment: dryness per Naveen dugan 14 Current %PO Negligible < 25% Estimated Nutritional Goals BEE in Kcals: Using Current wt Calories/Kcals/Kg 25-30 kcal/kg Kcals Calculated 7698-0075 Protein: Using Current wt Protein g/k-1.2 Protein Calculated 63-76 Fluid: ml 1575-1890ml Nutritional Problem 1. Problem Problem Difficulty swallowing Etiology medical condition Signs/Symptoms: SCALE AND SKIP CAR OPERATOR rec pureed/honey-thick liquids. 2. Problem Problem Inadequate po intake Etiology lack of appetite Signs/Symptoms: 0% po intake 11/01, none noted , refused breakfast this am per RN Intervention/Recommendation Recommendations by RD Add supplement feedings Comments 1. Continue pureed/honey-thick liquids 2. Add Ensure Enlive 1 carton TID 3. Monitor PO intake, wt, labs and skin integrity Expected Outcomes/Goals Expected Outcomes/Goals 1. PO intake to meet at least 75% of nutritional needs. 2. Wt stability, maintain skin integrity, labs to approach WNL. Betty Garcia, RD
--- NOTE | 2018-11-13 09:44 | Diagnostic Imaging Report ---
CHEST X-RAY: AP view INDICATION: Congestion COMPARISON: 11/03/2018 FINDINGS: There are extensive fibrotic lung changes. Vessel on end versus 3 mm calcified granuloma left mid to upper lung zone is noted. No focal consolidation. Biapical pleural thickening is noted. Heart size normal. Osseous structures are intact. IMPRESSION: Extensive chronic lung changes and fibrotic changes. Superimposed congestion and/or interstitial infiltrates cannot be excluded. Vessel on end versus 3 mm nodule possibly a granuloma the left mid to upper lung zone.
--- NOTE | 2018-11-13 20:40 | Progress Notes ---
DATE: 11/13/2018 SUBJECTIVE: Chart was reviewed and the patient interviewed. Also discussed the patient's condition with the staff and reviewed records and labs. The patient still has episodes of being selectively mute and he is still isolating himself. The patient also still agitated, but seems to be less than before. The patient also is trying to interact slightly more. He seems to be less sleepy and less tired since the change in his medications. Otherwise, the patient is compliant with taking his medications with no side effects. ASSESSMENT: The patient seems to be less sedated, but still has these periods of agitation. TREATMENT PLAN: We will continue to monitor his behavior and will continue adjusting psychotropic medications. Also discussed the case with his caregiver, discharge plans, and placement issue. JOB# [id number]
[2018-11-14] MEDS: Albuterol/Ipratropium Neb 3 ML AERS HHN SCH ×5 (03:22→20:11)
[2018-11-14] MEDS: Levothyroxine 0.05 Mg Tab PO SCH (06:41)
[2018-11-14] MEDS: Pantoprazole 40 mg EC Tab PO SCH (06:41)
[2018-11-14] MEDS: Multivitamin Tab PO SCH (10:57)
--- NOTE | 2018-11-14 23:40 | Discharge Summary ---
DATE OF DISCHARGE: 11/14/2018 PATIENT'S AGE: 88 SEX: Male. PHYSICIAN: Dr. Schulz. FINAL DIAGNOSIS/PRIMARY DIAGNOSIS: Unspecified psychosis. SECONDARY DIAGNOSIS: Dementia, moderate to severe, with psychotic features and behavioral disturbances. REASON FOR HOSPITALIZATION: The patient was admitted to the hospital because of increased agitation and combative behavior for the last 5 weeks prior to his admission. The patient was extremely irritable and agitated HOSPITAL COURSE: The patient continued to be extremely agitated and irritable. The patient also was having difficulty following directions. Also, was forgetful and was not able to follow any of staff directions. The patient continued to take Namenda in a dose of 10 mg at bedtime and also the patient was taking Aricept in a dose of 10 mg at bedtime. He also was given Zoloft in a dose of 50 mg daily and Seroquel was added in a dose of adjusted to 25 mg at bedtime. The patient was sleepy and groggy with the higher dose. ____. Gradually, the affect was brighter and the patient was calmer, but he was still has unsteady gait and unable ____ having generalized weakness. He was less agitated and less irritable, but he needed physical therapy because of his generalized weakness and unsteady gait. [facility] accepted the patient. PHYSICAL EXAMINATION: The patient showed no major medical problems. Also, blood workup showed no major abnormalities. AFTER DISCHARGE PLANS: The patient discharged from the hospital and plan for outpatient treatment in [facility]. EXPECTED OUTCOME AFTER DISCHARGE: Fair if the patient continues with his outpatient treatment and with his discharge plans. [facility]# [id number]
[2018-11-15] MEDS: Albuterol/Ipratropium Neb 3 ML AERS HHN SCH (03:03)
== END 2018-11-14 18:30 | DRG 885 ==
LOC: ER 13:13 → GERO 15:10
PROVIDERS: ADMIT Psychiatry & Neurology Psychiatry; ATTEND Psychiatry & Neurology Psychiatry
DX: F29 Unspecified psychosis not due to a substance or known physiological condition (principal); F03.91 Unspecified dementia, unspecified severity, with behavioral disturbance; I10 Essential (primary) hypertension; J44.9 Chronic obstructive pulmonary disease, unspecified; E78.5 Hyperlipidemia, unspecified; K21.9 Gastro-esophageal reflux disease without esophagitis; N40.0 Benign prostatic hyperplasia without lower urinary tract symptoms; G47.00 Insomnia, unspecified; E03.9 Hypothyroidism, unspecified; D64.9 Anemia, unspecified; Z88.8 Allergy status to other drugs, medicaments and biological substances
CPT/HCPCS: 36415-UA; 71045-TC; 71046-TC; 80053-TC; 80061-TC; 80164-TC; 80320-TC; 80329-TC; 83036-90; 84443-TC; 85007-TC; 85025-TC; 86592-TC; 93005; 94640; 94760; 97530; J1200; J1630; J2060; X3401; X3904; Z7610